=== PATIENT | male | born 1950 | race Caucasian/White ===

== ENCOUNTER 2018-07-16 18:24 | Observation (INO) ==
[2018-07-16] MEDS ORDERED: Sod Chloride 0.9% Inj 1,000 ML IV.SIG ONE ×3 (18:53→21:33)
--- NOTE | 2018-07-16 19:04 | ED ---
HPI General Chief complaint: Weakness Stated complaint: lower back pain/discolored/dizziness Source: patient Mode of arrival: wheelchair Limitations: no limitations History of Present Illness HPI Narrative: Comes in complaining of generalized weakness worsening over the last 2 days. Patient specifically denies any headache or chest pain, denies any nausea vomiting or diarrhea. Does state that the dizziness at times is that room spinning sensation, but that lately he has just not being able to be steady enough to support his own weight. It seems to get worse with sitting or standing or trying to ambulate. MD Complaint: generalized weakness Onset (ago): day(s) (2) Duration: constant Location: generalized Migration: none Relieving factors: none Exacerbating factors: exertion Associated symptoms: denies other symptoms Related Data Home Medications Medication Instructions Recorded Confirmed bupropion HCl [Wellbutrin SR] 150 mg PO DAILY 06/07/18 07/16/18 divalproex [Depakote] 500 mg PO DAILY 06/07/18 07/16/18 levothyroxine [Synthroid] 50 mcg PO DAILY 06/07/18 07/16/18 quetiapine [Seroquel] 400 mg PO HS 06/07/18 07/16/18 lisinopril 10 mg PO DAILY 07/16/18 07/16/18 Previous Rx's Medication Instructions Recorded hydrocodone-acetaminophen [[place]] 1 tab PO Q6H PRN #7 tab 06/07/18 ondansetron [Zofran ODT] 4 mg PO Q8H 5 Days #15 tab 07/16/18 Allergies Allergy/AdvReac Type Severity Reaction Status Date / Time No Known Allergies Allergy Verified 07/16/18 18:33 Review of Systems ROS: all other systems reviewed are negative PMFSH History History Provided By: Patient and Family Member (sister) Medical History Medical History Hypertension (Acute) Mood disorder (Acute) Thyroid disease (Acute) Surgical History Surgical History History of cholecystectomy (Acute) Hx of tonsillectomy (Acute) Social History Social History Substance History: No History of Abuse Second Hand Smoke Exposure: No Smoking Status: Former smoker Tobacco Type: Cigarettes How Often Do You Have a Drink Containing Alcohol: 2 to 4 times a month Exam Narrative Exam Narrative: GENERAL: Elderly male appears older than stated age, is very generally weak, unable to support his own weight on his own, requires assistance even with just moving about the bed SKIN: Warm and dry. HEAD: Atraumatic. Normocephalic. EYES: Pupils equal and round. No scleral icterus. No injection or drainage. ENT: No nasal bleeding or discharge. Dry oral mucosa NECK: Trachea midline. No JVD. CARDIOVASCULAR: Tachycardic rate regular rhythm. no rubs or gallops RESPIRATORY: Tachypnea, accessory muscle use. Clear to auscultation. Breath sounds equal bilaterally. GASTROINTESTINAL: Abdomen soft, non-tender, nondistended. No rebound or guarding MUSCULOSKELETAL: Extremities without clubbing, cyanosis, or edema. No obvious deformities. NEUROLOGICAL: Awake and alert. No obvious cranial nerve deficits. four out of 5 muscle strength in the arms and legs. Normal speech. PSYCHIATRIC: Appropriate mood and affect; insight and judgment normal. Course Initial Documented Vital Signs Temperature 97.8 F 07/16/18 18:26 Pulse Rate 148 H 07/16/18 18:26 Respiratory Rate 20 07/16/18 18:26 Blood Pressure 112/55 L 07/16/18 18:26 Pulse Oximetry 92 L 07/16/18 18:26 Last Documented Vital Signs Temperature 98.4 F 07/17/18 12:00 Pulse Rate 106 H 07/17/18 12:00 Respiratory Rate 31 H 07/17/18 12:00 Blood Pressure 118/73 07/17/18 12:00 Pulse Oximetry 92 L 07/17/18 12:00 Critical Care Time Critical Care Time: Yes Total Critical Care Time: 45 Attestation: Aggregate critical care time was 45 minutes. Time to perform other separately billable procedures was not included in the critical care time. My time did not include minutes spent treating any other patients simultaneously or on activities that did not directly contribute to the patient's treatment. The services I provided to this patient were to treat and/or prevent clinically significant deterioration I provided critical care services requiring my management, as noted below: Chart data review, documentation time, medication orders and management, vital sign assessments/reviewing monitor data, ordering and reviewing lab tests, ordering and interpreting/reviewing x-rays and diagnostic studies, care of the patient and discussion of the patient with the admitting physicians. Medical Decision Making MDM Narrative Medical decision making narrative: No leukocytosis, no anemia, however neutrophilia of 81% present normal platelet count Coagulation profile is within normal limits As of 2002 toxicology and chemistry panels are both pending Accu-Chek 117 Toxicology was negative for any drugs of abuse, negative aspirin, Tylenol, negative alcohol, CT scan is negative for any acute intra-abdominal inflammatory changes Chest x-ray is negative for any consolidation patient is not a safe d/c due to continued debility with high risk fall, living alone without support, and developing agitation and confusion (specifically asked patient and sister about alcoholism and was told he is an occasional drinker and not characterized as an alcoholic.... Medical Screen Exam Complete: Yes Emergency Medical Condition: Yes Differential Diagnosis Differential Diagnosis: Dehydration versus sepsis versus UTI versus pneumonia versus intra-abdominal source versus hemorrhage Medical Records Medical records reviewed: Yes I reviewed the patient's medical records. Lab Data Lab results reviewed: Yes I reviewed the patient's lab results. Result diagrams: 07/17/18 06:35 07/17/18 06:35 Lab Results 07/16/18 07/16/18 07/16/18 Range/Units 19:00 19:00 19:00 CBC w Diff Auto diff final WBC 8.6 (4.0-11.0) th/mm3 RBC 4.52 (4.50-5.90) mil/mm3 Hgb 14.3 (13.0-17.0) gm/dL Hct 42.8 (39.0-51.0) % MCV 94.7 (80.0-100.0) fL MCH 31.5 (27.0-34.0) pg MCHC 33.3 (32.0-36.0) % RDW 12.9 (11.6-17.2) % Plt Count 318 (150-450) th/mm3 MPV 8.9 (7.0-11.0) fL Neut % (Auto) 80.7 H (16.0-70.0) % Lymph % (Auto) 12.0 (9.0-44.0) % [place] % (Auto) 6.3 (0.0-8.0) % Eos % (Auto) 0.3 (0.0-4.0) % Baso % (Auto) 0.7 (0.0-2.0) % Neut # (Auto) 7.0 (1.8-7.7) th/mm3 Lymph # (Auto) 1.0 (1.0-4.8) th/mm3 [place] # (Auto) 0.5 (0.0-0.9) th/mm3 Eos # (Auto) 0.0 (0.0-0.4) th/mm3 Baso # (Auto) 0.1 (0.0-0.2) th/mm3 WBC Differential . Differential Comment . ESR (0-20) mm/hr PT 11.0 (9.8-11.6) sec INR 1.1 Ratio APTT 24.7 (24.3-30.1) sec D-Dimer Quant (PE/DVT) (0.00-0.50) mg/L FEU Sodium (136-145) meq/L Potassium (3.5-5.1) meq/L Chloride (98-107) meq/L Carbon Dioxide (21.0-32.0) meq/L Anion Gap (5-15) meq/L BUN (7-18) mg/dL Creatinine (0.60-1.30) mg/dL Estimated GFR (>89) mL/min POC Glucose (68-110) mg/dl Random Glucose (74-106) mg/dL Lactic Acid (0.4-2.0) mmol/L Calcium (8.5-10.1) mg/dL Magnesium (1.5-2.5) mg/dL Total Bilirubin (0.2-1.0) mg/dL AST (15-37) U/L ALT (12-78) U/L Alkaline Phosphatase (45-117) U/L Ammonia (11-32) mcmol/L Total Creatine Kinase (39-308) U/L CK-MB (CK-2) (0.5-3.6) ng/mL CK-MB (CK-2) % (0.0-4.0) % Troponin I (0.02-0.05) ng/mL Total Protein (6.4-8.2) g/dL Albumin (3.4-5.0) g/dL Lipase (73-393) U/L TSH (0.358-3.740) uIU/mL Urine Color (Yellw/Straw) Urine Clarity (Clear) Urine pH (5.0-8.5) Ur Specific [place] (1.002-1.035) Urine Protein (Neg-Trace) mg/dL Urine Glucose (UA) (Negative) mg/dL Urine Ketones (Negative) mg/dL Urine Occult Blood (Negative) Urine Nitrate (Negative) Urine Bilirubin (Negative) Urine Urobilinogen (Less than 2) mg/dL Ur Leukocyte Esterase (Negative) Urine RBC (0-3) /hpf Urine WBC (0-5) /hpf Ur Squamous Epith Cells (0-5) /hpf Micro UA Comment Ur Microscopic Review Urine Culture Comments Salicylates Less than 1.7 L (2.8-20.0) mg/dL Urine Opiates Screen (Neg) Acetaminophen (10.0-30.0) mcg/mL Ur Barbiturates Screen (Neg) Valproic Acid (50-100) mcg/mL Ur Amphetamines Screen (Neg) U Benzodiazepines Scrn (Neg) Urine Cocaine Screen (Neg) U Cannabinoids Screen (Neg) Serum Alcohol (0-5) mg/dL 07/16/18 07/16/18 07/16/18 Range/Units 19:44 19:50 19:55 CBC w Diff WBC (4.0-11.0) th/mm3 RBC (4.50-5.90) mil/mm3 Hgb (13.0-17.0) gm/dL Hct (39.0-51.0) % MCV (80.0-100.0) fL MCH (27.0-34.0) pg MCHC (32.0-36.0) % RDW (11.6-17.2) % Plt Count (150-450) th/mm3 MPV (7.0-11.0) fL Neut % (Auto) (16.0-70.0) % Lymph % (Auto) (9.0-44.0) % [place] % (Auto) (0.0-8.0) % Eos % (Auto) (0.0-4.0) % Baso % (Auto) (0.0-2.0) % Neut # (Auto) (1.8-7.7) th/mm3 Lymph # (Auto) (1.0-4.8) th/mm3 [place] # (Auto) (0.0-0.9) th/mm3 Eos # (Auto) (0.0-0.4) th/mm3 Baso # (Auto) (0.0-0.2) th/mm3 WBC Differential Differential Comment ESR (0-20) mm/hr PT (9.8-11.6) sec INR Ratio APTT (24.3-30.1) sec D-Dimer Quant (PE/DVT) (0.00-0.50) mg/L FEU Sodium 140 (136-145) meq/L Potassium 4.0 (3.5-5.1) meq/L Chloride 104 (98-107) meq/L Carbon Dioxide 28.2 (21.0-32.0) meq/L Anion Gap 8 (5-15) meq/L BUN 22 H (7-18) mg/dL Creatinine 1.00 (0.60-1.30) mg/dL Estimated GFR 75 L (>89) mL/min POC Glucose 117 H (68-110) mg/dl Random Glucose 113 H (74-106) mg/dL Lactic Acid 1.3 (0.4-2.0) mmol/L Calcium 8.4 L (8.5-10.1) mg/dL Magnesium (1.5-2.5) mg/dL Total Bilirubin 0.5 (0.2-1.0) mg/dL AST 31 (15-37) U/L ALT 33 (12-78) U/L Alkaline Phosphatase 61 (45-117) U/L Ammonia (11-32) mcmol/L Total Creatine Kinase 299 (39-308) U/L CK-MB (CK-2) 2.6 (0.5-3.6) ng/mL CK-MB (CK-2) % (0.0-4.0) % Troponin I Less than 0.02 L (0.02-0.05) ng/mL Total Protein 6.5 (6.4-8.2) g/dL Albumin 3.1 L (3.4-5.0) g/dL Lipase 115 (73-393) U/L TSH 1.410 (0.358-3.740) uIU/mL Urine Color (Yellw/Straw) Urine Clarity (Clear) Urine pH (5.0-8.5) Ur Specific [place] (1.002-1.035) Urine Protein (Neg-Trace) mg/dL Urine Glucose (UA) (Negative) mg/dL Urine Ketones (Negative) mg/dL Urine Occult Blood (Negative) Urine Nitrate (Negative) Urine Bilirubin (Negative) Urine Urobilinogen (Less than 2) mg/dL Ur Leukocyte Esterase (Negative) Urine RBC (0-3) /hpf Urine WBC (0-5) /hpf Ur Squamous Epith Cells (0-5) /hpf Micro UA Comment Ur Microscopic Review Urine Culture Comments Salicylates (2.8-20.0) mg/dL Urine Opiates Screen (Neg) Acetaminophen Less than 2.0 L (10.0-30.0) mcg/mL Ur Barbiturates Screen (Neg) Valproic Acid Less than 3 L (50-100) mcg/mL Ur Amphetamines Screen (Neg) U Benzodiazepines Scrn (Neg) Urine Cocaine Screen (Neg) U Cannabinoids Screen (Neg) Serum Alcohol Less than 3 (0-5) mg/dL 07/16/18 07/16/18 07/16/18 Range/Units 19:55 20:15 20:15 CBC w Diff WBC (4.0-11.0) th/mm3 RBC (4.50-5.90) mil/mm3 Hgb (13.0-17.0) gm/dL Hct (39.0-51.0) % MCV (80.0-100.0) fL MCH (27.0-34.0) pg MCHC (32.0-36.0) % RDW (11.6-17.2) % Plt Count (150-450) th/mm3 MPV (7.0-11.0) fL Neut % (Auto) (16.0-70.0) % Lymph % (Auto) (9.0-44.0) % [place] % (Auto) (0.0-8.0) % Eos % (Auto) (0.0-4.0) % Baso % (Auto) (0.0-2.0) % Neut # (Auto) (1.8-7.7) th/mm3 Lymph # (Auto) (1.0-4.8) th/mm3 [place] # (Auto) (0.0-0.9) th/mm3 Eos # (Auto) (0.0-0.4) th/mm3 Baso # (Auto) (0.0-0.2) th/mm3 WBC Differential Differential Comment ESR (0-20) mm/hr PT (9.8-11.6) sec INR Ratio APTT (24.3-30.1) sec D-Dimer Quant (PE/DVT) (0.00-0.50) mg/L FEU Sodium (136-145) meq/L Potassium (3.5-5.1) meq/L Chloride (98-107) meq/L Carbon Dioxide (21.0-32.0) meq/L Anion Gap (5-15) meq/L BUN (7-18) mg/dL Creatinine (0.60-1.30) mg/dL Estimated GFR (>89) mL/min POC Glucose (68-110) mg/dl Random Glucose (74-106) mg/dL Lactic Acid (0.4-2.0) mmol/L Calcium (8.5-10.1) mg/dL Magnesium (1.5-2.5) mg/dL Total Bilirubin (0.2-1.0) mg/dL AST (15-37) U/L ALT (12-78) U/L Alkaline Phosphatase (45-117) U/L Ammonia Less than 10 L (11-32) mcmol/L Total Creatine Kinase (39-308) U/L CK-MB (CK-2) (0.5-3.6) ng/mL CK-MB (CK-2) % (0.0-4.0) % Troponin I (0.02-0.05) ng/mL Total Protein (6.4-8.2) g/dL Albumin (3.4-5.0) g/dL Lipase (73-393) U/L TSH (0.358-3.740) uIU/mL Urine Color Yellow (Yellw/Straw) Urine Clarity Clear (Clear) Urine pH 7.5 (5.0-8.5) Ur Specific [place] 1.010 (1.002-1.035) Urine Protein Negative (Neg-Trace) mg/dL Urine Glucose (UA) Negative (Negative) mg/dL Urine Ketones Negative (Negative) mg/dL Urine Occult Blood Negative (Negative) Urine Nitrate Negative (Negative) Urine Bilirubin Negative (Negative) Urine Urobilinogen 0.2 (Less than 2) mg/dL Ur Leukocyte Esterase Negative (Negative) Urine RBC 0-3 (0-3) /hpf Urine WBC 0-5 (0-5) /hpf Ur Squamous Epith Cells 0-5 (0-5) /hpf Micro UA Comment Culture not ind Ur Microscopic Review Microscopic reviewed Urine Culture Comments Culture not ind Salicylates (2.8-20.0) mg/dL Urine Opiates Screen Neg (Neg) Acetaminophen (10.0-30.0) mcg/mL Ur Barbiturates Screen Neg (Neg) Valproic Acid (50-100) mcg/mL Ur Amphetamines Screen Neg (Neg) U Benzodiazepines Scrn Neg (Neg) Urine Cocaine Screen Neg (Neg) U Cannabinoids Screen Neg (Neg) Serum Alcohol (0-5) mg/dL 07/17/18 07/17/18 07/17/18 Range/Units 06:35 06:35 06:35 CBC w Diff Auto diff final WBC 7.9 (4.0-11.0) th/mm3 RBC 3.79 L (4.50-5.90) mil/mm3 Hgb 12.3 L D (13.0-17.0) gm/dL Hct 34.6 L (39.0-51.0) % MCV 91.2 D (80.0-100.0) fL MCH 32.5 (27.0-34.0) pg MCHC 35.6 (32.0-36.0) % RDW 13.3 (11.6-17.2) % Plt Count 269 (150-450) th/mm3 MPV 8.7 (7.0-11.0) fL Neut % (Auto) 68.9 (16.0-70.0) % Lymph % (Auto) 17.9 (9.0-44.0) % [place] % (Auto) 11.4 H (0.0-8.0) % Eos % (Auto) 0.9 (0.0-4.0) % Baso % (Auto) 0.9 (0.0-2.0) % Neut # (Auto) 5.4 (1.8-7.7) th/mm3 Lymph # (Auto) 1.4 (1.0-4.8) th/mm3 [place] # (Auto) 0.9 (0.0-0.9) th/mm3 Eos # (Auto) 0.1 (0.0-0.4) th/mm3 Baso # (Auto) 0.1 (0.0-0.2) th/mm3 WBC Differential . Differential Comment . ESR (0-20) mm/hr PT (9.8-11.6) sec INR Ratio APTT (24.3-30.1) sec D-Dimer Quant (PE/DVT) (0.00-0.50) mg/L FEU Sodium 144 (136-145) meq/L Potassium 3.6 (3.5-5.1) meq/L Chloride 110 H (98-107) meq/L Carbon Dioxide 26.0 (21.0-32.0) meq/L Anion Gap 8 (5-15) meq/L BUN 16 (7-18) mg/dL Creatinine 0.77 (0.60-1.30) mg/dL Estimated GFR Greater than 89 (>89) mL/min POC Glucose (68-110) mg/dl Random Glucose 99 (74-106) mg/dL Lactic Acid (0.4-2.0) mmol/L Calcium 8.0 L (8.5-10.1) mg/dL Magnesium 1.5 (1.5-2.5) mg/dL Total Bilirubin (0.2-1.0) mg/dL AST (15-37) U/L ALT (12-78) U/L Alkaline Phosphatase (45-117) U/L Ammonia (11-32) mcmol/L Total Creatine Kinase 319 H (39-308) U/L CK-MB (CK-2) 2.4 (0.5-3.6) ng/mL CK-MB (CK-2) % 0.8 (0.0-4.0) % Troponin I 0.03 (0.02-0.05) ng/mL Total Protein (6.4-8.2) g/dL Albumin (3.4-5.0) g/dL Lipase (73-393) U/L TSH (0.358-3.740) uIU/mL Urine Color (Yellw/Straw) Urine Clarity (Clear) Urine pH (5.0-8.5) Ur Specific [place] (1.002-1.035) Urine Protein (Neg-Trace) mg/dL Urine Glucose (UA) (Negative) mg/dL Urine Ketones (Negative) mg/dL Urine Occult Blood (Negative) Urine Nitrate (Negative) Urine Bilirubin (Negative) Urine Urobilinogen (Less than 2) mg/dL Ur Leukocyte Esterase (Negative) Urine RBC (0-3) /hpf Urine WBC (0-5) /hpf Ur Squamous Epith Cells (0-5) /hpf Micro UA Comment Ur Microscopic Review Urine Culture Comments Salicylates (2.8-20.0) mg/dL Urine Opiates Screen (Neg) Acetaminophen (10.0-30.0) mcg/mL Ur Barbiturates Screen (Neg) Valproic Acid Less than 3 L (50-100) mcg/mL Ur Amphetamines Screen (Neg) U Benzodiazepines Scrn (Neg) Urine Cocaine Screen (Neg) U Cannabinoids Screen (Neg) Serum Alcohol (0-5) mg/dL 07/17/18 07/17/18 Range/Units 06:35 06:35 CBC w Diff WBC (4.0-11.0) th/mm3 RBC (4.50-5.90) mil/mm3 Hgb (13.0-17.0) gm/dL Hct (39.0-51.0) % MCV (80.0-100.0) fL MCH (27.0-34.0) pg MCHC (32.0-36.0) % RDW (11.6-17.2) % Plt Count (150-450) th/mm3 MPV (7.0-11.0) fL Neut % (Auto) (16.0-70.0) % Lymph % (Auto) (9.0-44.0) % [place] % (Auto) (0.0-8.0) % Eos % (Auto) (0.0-4.0) % Baso % (Auto) (0.0-2.0) % Neut # (Auto) (1.8-7.7) th/mm3 Lymph # (Auto) (1.0-4.8) th/mm3 [place] # (Auto) (0.0-0.9) th/mm3 Eos # (Auto) (0.0-0.4) th/mm3 Baso # (Auto) (0.0-0.2) th/mm3 WBC Differential Differential Comment ESR 16 (0-20) mm/hr PT (9.8-11.6) sec INR Ratio APTT (24.3-30.1) sec D-Dimer Quant (PE/DVT) 2.39 H (0.00-0.50) mg/L FEU Sodium (136-145) meq/L Potassium (3.5-5.1) meq/L Chloride (98-107) meq/L Carbon Dioxide (21.0-32.0) meq/L Anion Gap (5-15) meq/L BUN (7-18) mg/dL Creatinine (0.60-1.30) mg/dL Estimated GFR (>89) mL/min POC Glucose (68-110) mg/dl Random Glucose (74-106) mg/dL Lactic Acid (0.4-2.0) mmol/L Calcium (8.5-10.1) mg/dL Magnesium (1.5-2.5) mg/dL Total Bilirubin (0.2-1.0) mg/dL AST (15-37) U/L ALT (12-78) U/L Alkaline Phosphatase (45-117) U/L Ammonia (11-32) mcmol/L Total Creatine Kinase (39-308) U/L CK-MB (CK-2) (0.5-3.6) ng/mL CK-MB (CK-2) % (0.0-4.0) % Troponin I (0.02-0.05) ng/mL Total Protein (6.4-8.2) g/dL Albumin (3.4-5.0) g/dL Lipase (73-393) U/L TSH (0.358-3.740) uIU/mL Urine Color (Yellw/Straw) Urine Clarity (Clear) Urine pH (5.0-8.5) Ur Specific [place] (1.002-1.035) Urine Protein (Neg-Trace) mg/dL Urine Glucose (UA) (Negative) mg/dL Urine Ketones (Negative) mg/dL Urine Occult Blood (Negative) Urine Nitrate (Negative) Urine Bilirubin (Negative) Urine Urobilinogen (Less than 2) mg/dL Ur Leukocyte Esterase (Negative) Urine RBC (0-3) /hpf Urine WBC (0-5) /hpf Ur Squamous Epith Cells (0-5) /hpf Micro UA Comment Ur Microscopic Review Urine Culture Comments Salicylates (2.8-20.0) mg/dL Urine Opiates Screen (Neg) Acetaminophen (10.0-30.0) mcg/mL Ur Barbiturates Screen (Neg) Valproic Acid (50-100) mcg/mL Ur Amphetamines Screen (Neg) U Benzodiazepines Scrn (Neg) Urine Cocaine Screen (Neg) U Cannabinoids Screen (Neg) Serum Alcohol (0-5) mg/dL Imaging Data Radiologist's impression: Chest X-Ray 07/16/18 18:54 CONCLUSION: No focal areas of consolidation. Infiltrate in the left lung base is similar to 2016 and may be chronic. Abdomen/Pelvis CT 07/16/18 18:56 CONCLUSION: 1. Nonobstructing 2 mm calcified stone mid pole left kidney. 2. Biliary gas in the left lobe is probably related to prior cholecystectomy. Abdomen/Pelvis CT 07/17/18 00:00 CONCLUSION: Postcholecystectomy changes and left hepatic pneumobilia. Chest CTA 07/17/18 00:00 CONCLUSION: 1. No CT evidence for pulmonary artery embolism as questioned. 2. Coronary artery calcifications. 3. Bilateral lower lobe groundglass opacities consistent with atelectasis. Platelike atelectasis/scarring in the lingula and right middle lobe. 4. Very nonspecific slightly prominent 13 mm subcarinal lymph node. ECG Data EKG Prior to Arrival: No Attestation: I personally reviewed and interpreted this ECG as follows: Prior ECG tracings: not available for review Interpretation: Sinus tachycardia, 120 bpm, left axis deviation, incomplete right bundle branch block pattern, along with ST depressions on V3 through V6 Discharge Plan Discharge Disposition Patient Disposition: 30 Still Patient Discharge Condition Condition: Fair Discharge Details Diagnosis: Dehydration, Orthostatic dizziness Physicians Team ED Provider: Haseeb Collazo Primary Care Provider: Magali Douglass Attending Provider: Sonido Martinez Other Providers: [employer] Status ED Status: Left Department Discharge Information Discharge Date/Time: 07/17/18 01:39
[2018-07-16 19:40] LABS: Baso # (Auto) 0.1 th/mm3 (0.0-0.2); Baso % (Auto) 0.7 % (0.0-2.0); Eos % (Auto) 0.3 % (0.0-4.0); Hematocrit 42.8 % (39.0-51.0); Hemoglobin 14.3 gm/dL (13.0-17.0); Mean Corpuscular HGB Conc 33.3 % (32.0-36.0); Mean Corpuscular Hemoglobin 31.5 pg (27.0-34.0); Mean Corpuscular Volume 94.7 fL (80.0-100.0); Mean Platelet Volume 8.9 fL (7.0-11.0); Mono # (Auto) 0.5 th/mm3 (0.0-0.9); Mono % (Auto) 6.3 % (0.0-8.0); Neut % (Auto) 80.7 % (16.0-70.0); Platelet Count 318 th/mm3 (150-450); Red Blood Count 4.52 mil/mm3 (4.50-5.90); Red Cell Distribution Width 12.9 % (11.6-17.2); White Blood Count 8.6 th/mm3 (4.0-11.0)
--- NOTE | 2018-07-16 19:45 | CT ---
EXAM DATE: 07/16/2018 7:37 PM EDT AGE/SEX: 68 years / Male INDICATIONS: Lower back pain. Bilateral flank pain. CLINICAL DATA: This is the patient's initial encounter. Patient reports that signs and symptoms have been present for 1 day and indicates a pain score of 6/10. MEDICAL/SURGICAL HISTORY: . Hypertension. Mood disorder. Thyroid disease. . Tonsillectomy. Cho lecystectomy. RADIATION DOSE: 10.04 CTDI (mGy) COMPARISON: No prior exams available for comparison. TECHNIQUE: Multiple contiguous axial images were obtained through the abdomen. Images were obtained using multiple row detector helical technique. Using automated exposure control and adjustment of the mA and/or kV according to patient size, radiation dose was kept as low as reasonably achievable to o btain optimal diagnostic quality images. DICOM format image data is available electronically for rev iew and comparison. FINDINGS: Lower Lungs: The visualized lower lungs are clear. Liver: The liver has a homogeneous density without space-occupying lesion for noncontrast technique. There is some gas in the biliary system of the left lobe, possibly related to prior cholecystectomy.. Spleen: Homogeneous density without enlargement. Pancreas: Unremarkable without mass or calcification. Kidneys: Normal in size and shape. No evidence of mass or hydronephrosis. There is a nonobstructing 2 mm stone in the midpole of the left kidney. No calcifications along the course of either ureter. Du plication of the collecting system on the right side. Adrenal Glands: Unremarkable. Aorta: The aorta and proximal iliac vessels are grossly unremarkable without aneurysmal dilation. Bowel/Mesentery: No dilated loops of small or large bowel. Hyperlucent cecum located medial. The kristian endix is identified superior to the cecum and has a normal size and appearance. Abdominal Wall: Intact. Retroperitoneum: No evidence of adenopathy in the retrocrural, para-aortic, or deep pelvic regions. Bladder: Contours are smooth. No calcifications within the lumen. Reproductive Organs: Metallic localization seeds in the prostate. Inguinal: The inguinal region is unremarkable without evidence of adenopathy. Bony Structures: Degenerative changes in the posterior elements lower lumbar spine. No sclerotic les ions seen. CONCLUSION: 1. Nonobstructing 2 mm calcified stone mid pole left kidney. 2. Biliary gas in the left lobe is probably related to prior cholecystectomy. Electronically signed by: Randal Crum MD 07/16/2018 7:44 PM EDT
--- NOTE | 2018-07-16 19:46 | XR ---
EXAM DATE: 07/16/2018 7:41 PM EDT AGE/SEX: 68 years / Male INDICATIONS: Short of breath and fever. CLINICAL DATA: This is the patient's initial encounter. Patient reports that signs and symptoms have been present for 1 day and indicates a pain score of 0/10. MEDICAL/SURGICAL HISTORY: . Hypertension. . Tonsillectomy. Cholecystectomy COMPARISON: [facility] [place], CHEST SINGLE AP, 10/06/2016. . FINDINGS: Frontal view of the chest demonstrates the lungs to be symmetrically aerated. There is some linear op acities in the left lung base which are similar in appearance to prior examination in September 2016 s uggesting chronic infiltrate or scarring. Both hemidiaphragms well delineated. The right lung is hawk r. The heart is normal in size. CONCLUSION: No focal areas of consolidation. Infiltrate in the left lung base is similar to 2016 and may be chron ic. Electronically signed by: Randal Crum MD 07/16/2018 7:45 PM EDT
[2018-07-16 19:53] LABS: Activated Partial Thrombo Time 24.7 sec (24.3-30.1); INR 1.1 Ratio
[2018-07-16 20:17] LABS: Chloride 104 meq/L (98-107); Sodium 140 meq/L (136-145)
[2018-07-16 20:20] LABS: Calcium 8.4 mg/dL (8.5-10.1)
[2018-07-16 20:21] LABS: Albumin 3.1 g/dL (3.4-5.0); Anion Gap 8 meq/L (5-15); Blood Urea Nitrogen 22 mg/dL (7-18); Carbon Dioxide 28.2 meq/L (21.0-32.0); Glucose,Random 113 mg/dL (74-106); Lipase 115 U/L (73-393)
[2018-07-16 20:23] LABS: Alanine Aminotransferase 33 U/L (12-78)
[2018-07-16 20:24] LABS: Aspartate Aminotransferase 31 U/L (15-37); Glomerular Filtration Rate 75 mL/min (>89)
[2018-07-16 20:25] LABS: Total Protein 6.5 g/dL (6.4-8.2)
[2018-07-16 20:26] LABS: Alkaline Phosphatase 61 U/L (45-117); Creatine Kinase 299 U/L (39-308)
[2018-07-16 20:31] LABS: Bilirubin,Urine Negative (Negative); Clarity,Urine Clear (Clear); Color,Urine Yellow (Yellw/Straw); Glucose,Urine (UA) Negative (Negative); Leukocyte Esterase,Urine Negative (Negative); Nitrite,Urine Negative (Negative); PH,Urine 7.5 (5.0-8.5); Urobilinogen,Urine 0.2 mg/dL (Less than 2)
[2018-07-16 20:39] LABS: Amphetamine Screen,Urine Neg (Neg); Barbiturate Screen,Urine Neg (Neg); Cannabinoid Screen,Urine Neg (Neg)
[2018-07-16 20:40] LABS: Cocaine Screen,Urine Neg (Neg)
[2018-07-16 20:43] LABS: RBC,Urine 0-3 /hpf (0-3); Squamous Epithelial Cell,Urine 0-5 /hpf (0-5); WBC,Urine 0-5 /hpf (0-5)
[2018-07-16 20:44] LABS: Creatine Kinase MB 2.6 ng/mL (0.5-3.6)
[2018-07-16 20:46] LABS: Opiate Screen,Urine Neg (Neg)
[2018-07-16] MEDS ORDERED: Acetaminophen 325 MG Tablet PO PRN (23:44)
[2018-07-16] MEDS ORDERED: Bisacodyl 10 MG Supp RECTAL PRN (23:44)
[2018-07-16] MEDS ORDERED: Sod Chloride 0.9% Inj 1,000 ML IV.CONT SCH (23:45)
[2018-07-17 07:08] LABS: Chloride 110 meq/L (98-107); Potassium 3.6 meq/L (3.5-5.1); Sodium 144 meq/L (136-145)
[2018-07-17 07:11] LABS: Anion Gap 8 meq/L (5-15); Blood Urea Nitrogen 16 mg/dL (7-18); Glucose,Random 99 mg/dL (74-106)
[2018-07-17 07:14] LABS: Glomerular Filtration Rate Greater Than 89 mL/min (>89)
[2018-07-17 07:22] LABS: Baso # (Auto) 0.1 th/mm3 (0.0-0.2); Baso % (Auto) 0.9 % (0.0-2.0); Eos # (Auto) 0.1 th/mm3 (0.0-0.4); Eos % (Auto) 0.9 % (0.0-4.0); Hematocrit 34.6 % (39.0-51.0); Hemoglobin 12.3 gm/dL (13.0-17.0); Lymph # (Auto) 1.4 th/mm3 (1.0-4.8); Lymph % (Auto) 17.9 % (9.0-44.0); Mean Corpuscular HGB Conc 35.6 % (32.0-36.0); Mean Corpuscular Hemoglobin 32.5 pg (27.0-34.0); Mean Corpuscular Volume 91.2 fL (80.0-100.0); Mean Platelet Volume 8.7 fL (7.0-11.0); Mono # (Auto) 0.9 th/mm3 (0.0-0.9); Mono % (Auto) 11.4 % (0.0-8.0); Neut # (Auto) 5.4 th/mm3 (1.8-7.7); Neut % (Auto) 68.9 % (16.0-70.0); Platelet Count 269 th/mm3 (150-450); Red Blood Count 3.79 mil/mm3 (4.50-5.90); Red Cell Distribution Width 13.3 % (11.6-17.2); White Blood Count 7.9 th/mm3 (4.0-11.0)
[2018-07-17] MEDS ORDERED: Potassium Phosphate Inj 30 MMOL in Sodium Chlor 0.9% Inj 250 ML IV.SIG PRN (08:59)
[2018-07-17] MEDS ORDERED: Sodium Phosphate Inj 30 MMOL in Sodium Chlor 0.9% Inj 250 ML IV.SIG PRN (08:59)
[2018-07-17] MEDS ORDERED: Magnesium Oxide 400 MG Tablet PO PRN (08:59)
[2018-07-17] MEDS ORDERED: Potassium Chlor 20 mEq Premix 20 MEQ/100 ML PIGGYBACK IV.SIG PRN ×2 (08:59)
[2018-07-17] MEDS ORDERED: Potassium Chlor 40 mEq Premix 40 MEQ/100 ML PIGGYBACK IV.SIG PRN ×2 (08:59)
[2018-07-17] MEDS ORDERED: Potassium Phosphate 500 MG Soluble Tablet PO PRN ×2 (08:59)
[2018-07-17] MEDS ORDERED: Potassium Chloride 25 MEQ Effervescent Tablet PO PRN (08:59)
[2018-07-17] MEDS ORDERED: Magnesium Sulfate Inj 2 GM in Sodium Chlor 0.9% Inj 96 ML IV.SIG PRN (08:59)
[2018-07-17] MEDS ORDERED: Magnesium Sulfate Inj 4 GM in Sodium Chlor 0.9% Inj 92 ML IV.SIG PRN (08:59)
[2018-07-17] MEDS: Heparin - SQ 10,000 UNITS/ML Vial SQ SCH ×2 (09:03→20:23)
[2018-07-17] MEDS: Senna/Docusate Sodium 8.6/50 MG Tablet PO SCH ×2 (09:03→20:23)
[2018-07-17] MEDS: buPROPion 150 MG 12 HR Tablet PO SCH (09:43)
[2018-07-17] MEDS: Levothyroxine 50 MCG Tablet PO SCH (09:44)
--- NOTE | 2018-07-17 09:56 | P.HP ---
History of Present Illness Primary Care Physician: Magali Douglass MD [facility] - History History Provided By: Patient - Medical History Medical History: Medical History (Last Reviewed 07/16/18 @ 19:46 by Evette Cheng RN) Hypertension Mood disorder Thyroid disease - Surgical History Surgical History: Surgical History (Last Reviewed 07/16/18 @ 19:46 by Evette Cheng RN) History of cholecystectomy Hx of tonsillectomy - Tobacco History Second Hand Smoke Exposure: No Tobacco Use In Past 30 Days: No Smoking Status: Former smoker Tobacco Type: Cigarettes - Alcohol History How Often Do You Have a Drink Containing Alcohol: 2 to 4 times a month - Substance Use History Substance History: No History of Abuse - Substance Use Type LSD, Mushrooms Last Used: 1996 Marijuana Status: Sustained Remission Route Used: Inhalation Last Used: 1996 - Immunization History Tetanus Immunization: <5 Years Hx Influenza Vaccine This Season: Yes Medications and Allergies Active Medications: Active Medications Acetaminophen (Tylenol) 650 mg PO Q4H PRN PRN Reason: Temp > 100.4 Hydrocodone Bitart/Acetaminophen ([place] 5/325) 1 tab PO Q6H PRN PRN Reason: pain (scale score 7-10) Last Admin: 07/17/18 09:43 Dose: 1 tab Al Hydroxide/Mg Hydroxide (Milk Of Magnemmy Liq) 30 ml PO Q12H PRN PRN Reason: Mild Constipation Bisacodyl (Dulcolax Supp) 10 mg RECTAL DAILY PRN PRN Reason: SEVERE CONSITIPATION Last Admin: 07/17/18 09:43 Dose: 10 mg Bupropion HCl (Wellbutrin Sr) 150 mg PO DAILY [facility] Last Admin: 07/17/18 09:43 Dose: 150 mg Divalproex Sodium (Depakote Dr) 500 mg PO DAILY [facility] Heparin Sodium (Porcine) (Heparin Inj) 5,000 units SQ Q12HR [facility] Last Admin: 07/17/18 09:03 Dose: 5,000 units Magnesium Sulfate Inj 4 gm/ (Sodium Chloride) 100 mls @ 50 mls/hr IV.SIG UNSCH PRN PRN Reason: For Magnesium 0.9 - 1.1 mg/dL Magnesium Sulfate Inj 2 gm/ (Sodium Chloride) 100 mls @ 50 mls/hr IV.SIG UNSCH PRN PRN Reason: For Magnesium 1.2 - 1.6 mg/dL Potassium Chloride (Kcl 40 Meq Premix Inj) 40 meq in 100 mls @ 25 mls/hr IV.SIG Q2H PRN PRN Reason: For Potassium 2.8 - 3.2 mEq/L Potassium Chloride (Kcl 20 Meq Premix Inj) 20 meq in 100 mls @ 50 mls/hr IV.SIG Q2H PRN PRN Reason: For Potassium 3.3 - 3.5 mEq/L Potassium Chloride (Kcl 40 Meq Premix Inj) 40 meq in 100 mls @ 25 mls/hr IV.SIG UNSCH PRN PRN Reason: For Potassium 3.3 - 3.5 mEq/L Potassium Chloride (Kcl 20 Meq Premix Inj) 20 meq in 100 mls @ 50 mls/hr IV.SIG Q2H PRN PRN Reason: For Potassium 2.8 - 3.2 mEq/L Potassium Phosphate 30 mmol/ (Sodium Chloride) 260 mls @ 42 mls/hr IV.SIG UNSCH PRN PRN Reason: SEE LABEL COMMENTS Sodium Phosphate 30 mmol/ (Sodium Chloride) 260 mls @ 42 mls/hr IV.SIG UNSCH PRN PRN Reason: For Phosphorus < 2.5 mg/dL Lactulose (Lactulose Liq) 30 ml PO DAILY PRN PRN Reason: SEVERE CONSITIPATION Levothyroxine Sodium (Synthroid) 50 mcg PO DAILY@0600 [facility] Last Admin: 07/17/18 09:44 Dose: 50 mcg Magnesium Oxide (Mag-Ox) 800 mg PO UNSCH PRN PRN Reason: For Magnesium 1.2 - 1.6 mg/dL Ondansetron HCl (Zofran Inj) 4 mg IV.PUSH Q6H PRN PRN Reason: NAUSEA OR VOMITING Last Admin: 07/17/18 09:03 Dose: 4 mg Potassium Bicarb/Potassium Chloride (K-Lyte Cl Eff) 50 meq PO UNSCH PRN PRN Reason: For Potassium 3.3 - 3.5 mEq/L Potassium Phosphate (K-Phos Original) 2,000 mg PO Q4H PRN PRN Reason: Phosphorus Less Than 2.5 mg/dL Potassium Phosphate (K-Phos Original) 2,000 mg PO UNSCH PRN PRN Reason: SEE LABEL COMMENTS Quetiapine Fumarate (Seroquel) 400 mg PO [facility] Senna/Docusate Sodium (Betsy-Colace) 1 tab PO BID [facility] Last Admin: 07/17/18 09:03 Dose: 1 tab Sennosides (Senokot) 17.2 mg PO Q12H PRN PRN Reason: Moderate Constipation Last Admin: 07/17/18 09:43 Dose: 17.2 mg Allergies Allergy/AdvReac Type Severity Reaction Status Date / Time No Known Allergies Allergy Verified 07/16/18 18:33 Home Medications Medication Instructions Recorded Confirmed Type bupropion HCl [Wellbutrin SR] 150 mg PO DAILY 06/07/18 07/16/18 History divalproex [Depakote] 500 mg PO DAILY 06/07/18 07/16/18 History levothyroxine [Synthroid] 50 mcg PO DAILY 06/07/18 07/16/18 History quetiapine [Seroquel] 400 mg PO HS 06/07/18 07/16/18 History lisinopril 10 mg PO DAILY 07/16/18 07/16/18 History Exam Vital signs: Vital Signs 07/16/18 18:26 07/16/18 19:00 07/16/18 19:15 Temperature 97.8 F Pulse Rate 148 H 127 H 120 H Respiratory Rate 20 20 Blood Pressure 112/55 L 103/73 Pulse Oximetry 92 L 95 07/16/18 20:18 07/17/18 00:49 07/17/18 01:16 Temperature Pulse Rate 116 H 124 H 109 H Respiratory Rate 20 20 20 Blood Pressure 139/94 H 168/89 H 172/98 H Pulse Oximetry 96 96 95 07/17/18 01:54 07/17/18 01:55 07/17/18 02:00 Temperature 98.4 F Pulse Rate 111 H 103 H Respiratory Rate 27 H Blood Pressure 174/106 H Pulse Oximetry 91 L 91 L 07/17/18 04:00 07/17/18 05:27 07/17/18 07:00 Temperature 98.2 F 98.4 F Pulse Rate 102 H 92 H Respiratory Rate 28 H 30 H Blood Pressure 182/97 H 166/103 H 170/88 H Pulse Oximetry 93 L 95 07/17/18 08:00 Temperature Pulse Rate 94 H Respiratory Rate 40 H Blood Pressure 155/101 H Pulse Oximetry 95 Intake & Output 07/16/18 07/17/18 07/17/18 18:59 06:59 18:59 Intake Total 3060 / 3060 Balance 3060 / 3060 Weight 80 kg 80.6 kg Intake: IV 3000 / 3000 NS Inj 1,000 ML @ Wide Open IV. 3000 / 3000 SIG BOLUS ONE Rx#:[id number] Oral 60 / 60 Other: # Incontinent Voids 1 Weight On Admission 80.6 kg Results - Labs CBC & Chem 7: 07/17/18 06:35 07/17/18 06:35 Labs: Laboratory Results - last 24 hr 07/16/18 07/16/18 07/16/18 19:00 19:00 19:00 CBC w Diff Auto diff final WBC 8.6 RBC 4.52 Hgb 14.3 Hct 42.8 MCV 94.7 MCH 31.5 MCHC 33.3 RDW 12.9 Plt Count 318 MPV 8.9 Neut % (Auto) 80.7 H Lymph % (Auto) 12.0 [place] % (Auto) 6.3 Eos % (Auto) 0.3 Baso % (Auto) 0.7 Neut # (Auto) 7.0 Lymph # (Auto) 1.0 [place] # (Auto) 0.5 Eos # (Auto) 0.0 Baso # (Auto) 0.1 WBC Differential . Differential Comment . PT 11.0 INR 1.1 APTT 24.7 Sodium Potassium Chloride Carbon Dioxide Anion Gap BUN Creatinine Estimated GFR POC Glucose Random Glucose Lactic Acid Calcium Total Bilirubin AST ALT Alkaline Phosphatase Ammonia Total Creatine Kinase CK-MB (CK-2) Troponin I Total Protein Albumin Lipase TSH Urine Color Urine Clarity Urine pH Ur Specific [place] Urine Protein Urine Glucose (UA) Urine Ketones Urine Occult Blood Urine Nitrate Urine Bilirubin Urine Urobilinogen Ur Leukocyte Esterase Urine RBC Urine WBC Ur Squamous Epith Cells Micro UA Comment Ur Microscopic Review Urine Culture Comments Salicylates Less than 1.7 L Urine Opiates Screen Acetaminophen Ur Barbiturates Screen Valproic Acid Ur Amphetamines Screen U Benzodiazepines Scrn Urine Cocaine Screen U Cannabinoids Screen Serum Alcohol 07/16/18 07/16/18 07/16/18 19:44 19:50 19:55 CBC w Diff WBC RBC Hgb Hct MCV MCH MCHC RDW Plt Count MPV Neut % (Auto) Lymph % (Auto) [place] % (Auto) Eos % (Auto) Baso % (Auto) Neut # (Auto) Lymph # (Auto) [place] # (Auto) Eos # (Auto) Baso # (Auto) WBC Differential Differential Comment PT INR APTT Sodium 140 Potassium 4.0 Chloride 104 Carbon Dioxide 28.2 Anion Gap 8 BUN 22 H Creatinine 1.00 Estimated GFR 75 L POC Glucose 117 H Random Glucose 113 H Lactic Acid 1.3 Calcium 8.4 L Total Bilirubin 0.5 AST 31 ALT 33 Alkaline Phosphatase 61 Ammonia Total Creatine Kinase 299 CK-MB (CK-2) 2.6 Troponin I Less than 0.02 L Total Protein 6.5 Albumin 3.1 L Lipase 115 TSH 1.410 Urine Color Urine Clarity Urine pH Ur Specific [place] Urine Protein Urine Glucose (UA) Urine Ketones Urine Occult Blood Urine Nitrate Urine Bilirubin Urine Urobilinogen Ur Leukocyte Esterase Urine RBC Urine WBC Ur Squamous Epith Cells Micro UA Comment Ur Microscopic Review Urine Culture Comments Salicylates Urine Opiates Screen Acetaminophen Less than 2.0 L Ur Barbiturates Screen Valproic Acid Less than 3 L Ur Amphetamines Screen U Benzodiazepines Scrn Urine Cocaine Screen U Cannabinoids Screen Serum Alcohol Less than 3 07/16/18 07/16/18 07/16/18 19:55 20:15 20:15 CBC w Diff WBC RBC Hgb Hct MCV MCH MCHC RDW Plt Count MPV Neut % (Auto) Lymph % (Auto) [place] % (Auto) Eos % (Auto) Baso % (Auto) Neut # (Auto) Lymph # (Auto) [place] # (Auto) Eos # (Auto) Baso # (Auto) WBC Differential Differential Comment PT INR APTT Sodium Potassium Chloride Carbon Dioxide Anion Gap BUN Creatinine Estimated GFR POC Glucose Random Glucose Lactic Acid Calcium Total Bilirubin AST ALT Alkaline Phosphatase Ammonia Less than 10 L Total Creatine Kinase CK-MB (CK-2) Troponin I Total Protein Albumin Lipase TSH Urine Color Yellow Urine Clarity Clear Urine pH 7.5 Ur Specific [place] 1.010 Urine Protein Negative Urine Glucose (UA) Negative Urine Ketones Negative Urine Occult Blood Negative Urine Nitrate Negative Urine Bilirubin Negative Urine Urobilinogen 0.2 Ur Leukocyte Esterase Negative Urine RBC 0-3 Urine WBC 0-5 Ur Squamous Epith Cells 0-5 Micro UA Comment Culture not ind Ur Microscopic Review Microscopic reviewed Urine Culture Comments Culture not ind Salicylates Urine Opiates Screen Neg Acetaminophen Ur Barbiturates Screen Neg Valproic Acid Ur Amphetamines Screen Neg U Benzodiazepines Scrn Neg Urine Cocaine Screen Neg U Cannabinoids Screen Neg Serum Alcohol 08/24/18 08/24/18 06:35 06:35 CBC w Diff Auto diff final WBC 7.9 RBC 3.79 L Hgb 12.3 L D Hct 34.6 L MCV 91.2 D MCH 32.5 MCHC 35.6 RDW 13.3 Plt Count 269 MPV 8.7 Neut % (Auto) 68.9 Lymph % (Auto) 17.9 [place] % (Auto) 11.4 H Eos % (Auto) 0.9 Baso % (Auto) 0.9 Neut # (Auto) 5.4 Lymph # (Auto) 1.4 [place] # (Auto) 0.9 Eos # (Auto) 0.1 Baso # (Auto) 0.1 WBC Differential . Differential Comment . PT INR APTT Sodium 144 Potassium 3.6 Chloride 110 H Carbon Dioxide 26.0 Anion Gap 8 BUN 16 Creatinine 0.77 Estimated GFR Greater than 89 POC Glucose Random Glucose 99 Lactic Acid Calcium 8.0 L Total Bilirubin AST ALT Alkaline Phosphatase Ammonia Total Creatine Kinase CK-MB (CK-2) Troponin I Total Protein Albumin Lipase TSH Urine Color Urine Clarity Urine pH Ur Specific [place] Urine Protein Urine Glucose (UA) Urine Ketones Urine Occult Blood Urine Nitrate Urine Bilirubin Urine Urobilinogen Ur Leukocyte Esterase Urine RBC Urine WBC Ur Squamous Epith Cells Micro UA Comment Ur Microscopic Review Urine Culture Comments Salicylates Urine Opiates Screen Acetaminophen Ur Barbiturates Screen Valproic Acid Ur Amphetamines Screen U Benzodiazepines Scrn Urine Cocaine Screen U Cannabinoids Screen Serum Alcohol - Imaging Impressions Chest X-Ray 07/16/18 18:54 CONCLUSION: No focal areas of consolidation. Infiltrate in the left lung base is similar to 2016 and may be chronic. Abdomen/Pelvis CT 07/16/18 18:56 CONCLUSION: 1. Nonobstructing 2 mm calcified stone mid pole left kidney. 2. Biliary gas in the left lobe is probably related to prior cholecystectomy. Caprini VTE Risk Assessment Caprini Risk Assessment Model: Point Value = 1 Point Value = 2 Point Value = 3 Point Value = 5 Age 41-60 Minor surgery BMI > 25 kg/m2 Swollen legs Varicose veins or History of unexplained or recurrent spontaneous Oral contraceptives or hormone replacement Sepsis (< 1 month) Serious lung disease, including pneumonia (< 1 month) Abnormal pulmonary function Acute myocardial infarction Congestive heart failure (< 1 month) History of inflammatory bowel disease Medical patient at bed rest Age 61-74 Arthroscopic surgery Major open surgery (> 45 min) Laparoscopic surgery (> 45 min) Malignancy Confined to bed (> 72 hours) Immobilizing plaster cast Central venous access Age >= 75 History of VTE Family history of VTE Factor V Leiden Prothrombin [id number] Lupus anticoagulant Anticardiolipin antibodies Elevated serum homocysteine Heparin-induced thrombocytopenia Other congenital or acquired thrombophilia Stroke (< 1 month) Elective arthroplasty Hip, pelvis, or leg fracture Acute spinal cord injury (< 1 month) Prophylaxis Regimen: Total Risk Factor Score Risk Level Prophylaxis Regimen 0-1 Low Early ambulation 2 Moderate Order ONE of the following: *Sequential Compression Device (SCD) *Heparin 5000 units SQ BID 3-4 Higher Order ONE of the following medications: *Heparin 5000 units SQ TID *Enoxaparin/Lovenox 40 mg SQ daily (WT < 150 kg, CrCl > 30 mL/min) *Enoxaparin/Lovenox 30 mg SQ daily (WT < 150 kg, CrCl > 10-29 mL/min) *Enoxaparin/Lovenox 30 mg SQ BID (WT < 150 kg, CrCl > 30 mL/min) AND/OR *Sequential Compression Device (SCD) 5 or more Highest Order ONE of the following medications: *Heparin 5000 units SQ TID (Preferred with Epidurals) *Enoxaparin/Lovenox 40 mg SQ daily (WT < 150 kg, CrCl > 30 mL/min) *Enoxaparin/Lovenox 30 mg SQ daily (WT < 150 kg, CrCl > 10-29 mL/min) *Enoxaparin/Lovenox 30 mg SQ BID (WT < 150 kg, CrCl > 30 mL/min) AND *Sequential Compression Device (SCD)
--- NOTE | 2018-07-17 10:02 | P.HP ---
History of Present Illness Primary Care Physician: Magali Douglass MD Chief Complaint: Generalized weakness History of Present Illness: This is a 68-year-old male with a history of bipolar disorder, hypothyroidism and hypertension. Family history of heart disease. He presents to the emergency department because of dehydration. States he has been feeling weak for about a week worsening over the last 2 days associated with dizziness especially when he is standing. No falls. Denies anorexia, nausea, vomiting, abdominal pain, UTI and diarrhea. He was not orthostatic in the emergency department and has been hydrated overnight. This morning he complains of nausea. He also reports of chronic intermittent sharp severe retrosternal pain as well as mid back pain lasting from 5-30 minutes associated with dizziness. He also reports of heavy breathing but denies radiation of pain, palpitations and diaphoresis. No precipitating or alleviating factors. It is not related to meals. Denies history of CAD with negative stress test in 2006. No leg pain or swelling. On exam he is also tender over his sternum and entire spine. He also reports of visual hallucination seeing people denies being threatened. States he is not taking any new medications. UDS is negative. All other systems reviewed negative Review of Systems All other systems reviewed negative except as stated in HPI PMFSH - History History Provided By: Patient - Medical History Medical History: Medical History (Last Reviewed 07/16/18 @ 19:46 by Evette Cheng RN) Hypertension Mood disorder Thyroid disease - Surgical History Surgical History: Surgical History (Last Reviewed 07/16/18 @ 19:46 by Evette Cheng RN) History of cholecystectomy Hx of tonsillectomy - Tobacco History Second Hand Smoke Exposure: No Tobacco Use In Past 30 Days: No Smoking Status: Former smoker Tobacco Type: Cigarettes - Alcohol History How Often Do You Have a Drink Containing Alcohol: 2 to 4 times a month - Substance Use History Substance History: No History of Abuse - Substance Use Type LSD, Mushrooms Last Used: 1996 Marijuana Status: Sustained Remission Route Used: Inhalation Last Used: 1996 - Immunization History Tetanus Immunization: <5 Years Hx Influenza Vaccine This Season: Yes Medications and Allergies Active Medications: Active Medications Acetaminophen (Tylenol) 650 mg PO Q4H PRN PRN Reason: Temp > 100.4 Hydrocodone Bitart/Acetaminophen (Martelle 5/325) 1 tab PO Q6H PRN PRN Reason: pain (scale score 7-10) Last Admin: 07/17/18 09:43 Dose: 1 tab Al Hydroxide/Mg Hydroxide (Milk Of Magnemmy Liq) 30 ml PO Q12H PRN PRN Reason: Mild Constipation Bisacodyl (Dulcolax Supp) 10 mg RECTAL DAILY PRN PRN Reason: SEVERE CONSITIPATION Last Admin: 07/17/18 09:43 Dose: 10 mg Bupropion HCl (Wellbutrin Sr) 150 mg PO DAILY [facility] Last Admin: 07/17/18 09:43 Dose: 150 mg Divalproex Sodium (Depakote Dr) 500 mg PO DAILY [facility] Heparin Sodium (Porcine) (Heparin Inj) 5,000 units SQ Q12HR [facility] Last Admin: 07/17/18 09:03 Dose: 5,000 units Magnesium Sulfate Inj 4 gm/ (Sodium Chloride) 100 mls @ 50 mls/hr IV.SIG UNSCH PRN PRN Reason: For Magnesium 0.9 - 1.1 mg/dL Magnesium Sulfate Inj 2 gm/ (Sodium Chloride) 100 mls @ 50 mls/hr IV.SIG UNSCH PRN PRN Reason: For Magnesium 1.2 - 1.6 mg/dL Potassium Chloride (Kcl 40 Meq Premix Inj) 40 meq in 100 mls @ 25 mls/hr IV.SIG Q2H PRN PRN Reason: For Potassium 2.8 - 3.2 mEq/L Potassium Chloride (Kcl 20 Meq Premix Inj) 20 meq in 100 mls @ 50 mls/hr IV.SIG Q2H PRN PRN Reason: For Potassium 3.3 - 3.5 mEq/L Potassium Chloride (Kcl 40 Meq Premix Inj) 40 meq in 100 mls @ 25 mls/hr IV.SIG UNSCH PRN PRN Reason: For Potassium 3.3 - 3.5 mEq/L Potassium Chloride (Kcl 20 Meq Premix Inj) 20 meq in 100 mls @ 50 mls/hr IV.SIG Q2H PRN PRN Reason: For Potassium 2.8 - 3.2 mEq/L Potassium Phosphate 30 mmol/ (Sodium Chloride) 260 mls @ 42 mls/hr IV.SIG UNSCH PRN PRN Reason: SEE LABEL COMMENTS Sodium Phosphate 30 mmol/ (Sodium Chloride) 260 mls @ 42 mls/hr IV.SIG UNSCH PRN PRN Reason: For Phosphorus < 2.5 mg/dL Lactulose (Lactulose Liq) 30 ml PO DAILY PRN PRN Reason: SEVERE CONSITIPATION Levothyroxine Sodium (Synthroid) 50 mcg PO DAILY@0600 [facility] Last Admin: 07/17/18 09:44 Dose: 50 mcg Magnesium Oxide (Mag-Ox) 800 mg PO UNSCH PRN PRN Reason: For Magnesium 1.2 - 1.6 mg/dL Ondansetron HCl (Zofran Inj) 4 mg IV.PUSH Q6H PRN PRN Reason: NAUSEA OR VOMITING Last Admin: 07/17/18 09:03 Dose: 4 mg Potassium Bicarb/Potassium Chloride (K-Lyte Cl Eff) 50 meq PO UNSCH PRN PRN Reason: For Potassium 3.3 - 3.5 mEq/L Potassium Phosphate (K-Phos Original) 2,000 mg PO Q4H PRN PRN Reason: Phosphorus Less Than 2.5 mg/dL Potassium Phosphate (K-Phos Original) 2,000 mg PO UNSCH PRN PRN Reason: SEE LABEL COMMENTS Quetiapine Fumarate (Seroquel) 400 mg PO [facility] Senna/Docusate Sodium (Betsy-Colace) 1 tab PO BID [facility] Last Admin: 07/17/18 09:03 Dose: 1 tab Sennosides (Senokot) 17.2 mg PO Q12H PRN PRN Reason: Moderate Constipation Last Admin: 07/17/18 09:43 Dose: 17.2 mg Allergies Allergy/AdvReac Type Severity Reaction Status Date / Time No Known Allergies Allergy Verified 07/16/18 18:33 Home Medications Medication Instructions Recorded Confirmed Type bupropion HCl [Wellbutrin SR] 150 mg PO DAILY 06/07/18 07/16/18 History divalproex [Depakote] 500 mg PO DAILY 06/07/18 07/16/18 History levothyroxine [Synthroid] 50 mcg PO DAILY 06/07/18 07/16/18 History quetiapine [Seroquel] 400 mg PO HS 06/07/18 07/16/18 History lisinopril 10 mg PO DAILY 07/16/18 07/16/18 History Exam Vital signs: Vital Signs 07/16/18 18:26 07/16/18 19:00 07/16/18 19:15 Temperature 97.8 F Pulse Rate 148 H 127 H 120 H Respiratory Rate 20 20 Blood Pressure 112/55 L 103/73 Pulse Oximetry 92 L 95 07/16/18 20:18 07/17/18 00:49 07/17/18 01:16 Temperature Pulse Rate 116 H 124 H 109 H Respiratory Rate 20 20 20 Blood Pressure 139/94 H 168/89 H 172/98 H Pulse Oximetry 96 96 95 07/17/18 01:54 07/17/18 01:55 07/17/18 02:00 Temperature 98.4 F Pulse Rate 111 H 103 H Respiratory Rate 27 H Blood Pressure 174/106 H Pulse Oximetry 91 L 91 L 07/17/18 04:00 07/17/18 05:27 07/17/18 07:00 Temperature 98.2 F 98.4 F Pulse Rate 102 H 92 H Respiratory Rate 28 H 30 H Blood Pressure 182/97 H 166/103 H 170/88 H Pulse Oximetry 93 L 95 07/17/18 08:00 Temperature Pulse Rate 94 H Respiratory Rate 40 H Blood Pressure 155/101 H Pulse Oximetry 95 Intake & Output 07/16/18 07/17/18 07/17/18 18:59 06:59 18:59 Intake Total 3060 / 3060 Balance 3060 / 3060 Weight 80 kg 80.6 kg Intake: IV 3000 / 3000 NS Inj 1,000 ML @ Wide Open IV. 3000 / 3000 SIG BOLUS ONE Rx#:[id number] Oral 60 / 60 Other: # Incontinent Voids 1 Weight On Admission 80.6 kg Narrative: GENERAL: Well-developed, well-nourished in no distress SKIN: Warm and dry. HEAD: Atraumatic. Normocephalic. EYES: Pupils equal and round. No scleral icterus. No injection or drainage. ENT: No nasal bleeding or discharge. Mucous membranes pink and moist. NECK: Trachea midline. No JVD. CARDIOVASCULAR: Regular rate and rhythm. RESPIRATORY: No accessory muscle use. Clear to auscultation. Breath sounds equal bilaterally. Tachypneic with tender sternum GASTROINTESTINAL: Abdomen soft, non-tender, nondistended. MUSCULOSKELETAL: Extremities without clubbing, cyanosis, or edema. No obvious deformities. Tender entire spine NEUROLOGICAL: Awake and alert. No obvious cranial nerve deficits. Motor grossly within normal limits. Five out of 5 muscle strength in the arms and legs. Normal speech. Admits to visual PSYCHIATRIC: Appropriate mood and affect; insight and judgment normal. Results - Labs CBC & Chem 7: 07/17/18 06:35 07/17/18 06:35 Labs: Laboratory Results - last 24 hr 07/16/18 07/16/18 07/16/18 19:00 19:00 19:00 CBC w Diff Auto diff final WBC 8.6 RBC 4.52 Hgb 14.3 Hct 42.8 MCV 94.7 MCH 31.5 MCHC 33.3 RDW 12.9 Plt Count 318 MPV 8.9 Neut % (Auto) 80.7 H Lymph % (Auto) 12.0 [place] % (Auto) 6.3 Eos % (Auto) 0.3 Baso % (Auto) 0.7 Neut # (Auto) 7.0 Lymph # (Auto) 1.0 [place] # (Auto) 0.5 Eos # (Auto) 0.0 Baso # (Auto) 0.1 WBC Differential . Differential Comment . PT 11.0 INR 1.1 APTT 24.7 Sodium Potassium Chloride Carbon Dioxide Anion Gap BUN Creatinine Estimated GFR POC Glucose Random Glucose Lactic Acid Calcium Total Bilirubin AST ALT Alkaline Phosphatase Ammonia Total Creatine Kinase CK-MB (CK-2) Troponin I Total Protein Albumin Lipase TSH Urine Color Urine Clarity Urine pH Ur Specific [place] Urine Protein Urine Glucose (UA) Urine Ketones Urine Occult Blood Urine Nitrate Urine Bilirubin Urine Urobilinogen Ur Leukocyte Esterase Urine RBC Urine WBC Ur Squamous Epith Cells Micro UA Comment Ur Microscopic Review Urine Culture Comments Salicylates Less than 1.7 L Urine Opiates Screen Acetaminophen Ur Barbiturates Screen Valproic Acid Ur Amphetamines Screen U Benzodiazepines Scrn Urine Cocaine Screen U Cannabinoids Screen Serum Alcohol 07/16/18 07/16/18 07/16/18 19:44 19:50 19:55 CBC w Diff WBC RBC Hgb Hct MCV MCH MCHC RDW Plt Count MPV Neut % (Auto) Lymph % (Auto) [place] % (Auto) Eos % (Auto) Baso % (Auto) Neut # (Auto) Lymph # (Auto) [place] # (Auto) Eos # (Auto) Baso # (Auto) WBC Differential Differential Comment PT INR APTT Sodium 140 Potassium 4.0 Chloride 104 Carbon Dioxide 28.2 Anion Gap 8 BUN 22 H Creatinine 1.00 Estimated GFR 75 L POC Glucose 117 H Random Glucose 113 H Lactic Acid 1.3 Calcium 8.4 L Total Bilirubin 0.5 AST 31 ALT 33 Alkaline Phosphatase 61 Ammonia Total Creatine Kinase 299 CK-MB (CK-2) 2.6 Troponin I Less than 0.02 L Total Protein 6.5 Albumin 3.1 L Lipase 115 TSH 1.410 Urine Color Urine Clarity Urine pH Ur Specific [place] Urine Protein Urine Glucose (UA) Urine Ketones Urine Occult Blood Urine Nitrate Urine Bilirubin Urine Urobilinogen Ur Leukocyte Esterase Urine RBC Urine WBC Ur Squamous Epith Cells Micro UA Comment Ur Microscopic Review Urine Culture Comments Salicylates Urine Opiates Screen Acetaminophen Less than 2.0 L Ur Barbiturates Screen Valproic Acid Less than 3 L Ur Amphetamines Screen U Benzodiazepines Scrn Urine Cocaine Screen U Cannabinoids Screen Serum Alcohol Less than 3 07/16/18 07/16/18 07/16/18 19:55 20:15 20:15 CBC w Diff WBC RBC Hgb Hct MCV MCH MCHC RDW Plt Count MPV Neut % (Auto) Lymph % (Auto) [place] % (Auto) Eos % (Auto) Baso % (Auto) Neut # (Auto) Lymph # (Auto) [place] # (Auto) Eos # (Auto) Baso # (Auto) WBC Differential Differential Comment PT INR APTT Sodium Potassium Chloride Carbon Dioxide Anion Gap BUN Creatinine Estimated GFR POC Glucose Random Glucose Lactic Acid Calcium Total Bilirubin AST ALT Alkaline Phosphatase Ammonia Less than 10 L Total Creatine Kinase CK-MB (CK-2) Troponin I Total Protein Albumin Lipase TSH Urine Color Yellow Urine Clarity Clear Urine pH 7.5 Ur Specific [place] 1.010 Urine Protein Negative Urine Glucose (UA) Negative Urine Ketones Negative Urine Occult Blood Negative Urine Nitrate Negative Urine Bilirubin Negative Urine Urobilinogen 0.2 Ur Leukocyte Esterase Negative Urine RBC 0-3 Urine WBC 0-5 Ur Squamous Epith Cells 0-5 Micro UA Comment Culture not ind Ur Microscopic Review Microscopic reviewed Urine Culture Comments Culture not ind Salicylates Urine Opiates Screen Neg Acetaminophen Ur Barbiturates Screen Neg Valproic Acid Ur Amphetamines Screen Neg U Benzodiazepines Scrn Neg Urine Cocaine Screen Neg U Cannabinoids Screen Neg Serum Alcohol 07/17/18 07/17/18 06:35 06:35 CBC w Diff Auto diff final WBC 7.9 RBC 3.79 L Hgb 12.3 L D Hct 34.6 L MCV 91.2 D MCH 32.5 MCHC 35.6 RDW 13.3 Plt Count 269 MPV 8.7 Neut % (Auto) 68.9 Lymph % (Auto) 17.9 [place] % (Auto) 11.4 H Eos % (Auto) 0.9 Baso % (Auto) 0.9 Neut # (Auto) 5.4 Lymph # (Auto) 1.4 [place] # (Auto) 0.9 Eos # (Auto) 0.1 Baso # (Auto) 0.1 WBC Differential . Differential Comment . PT INR APTT Sodium 144 Potassium 3.6 Chloride 110 H Carbon Dioxide 26.0 Anion Gap 8 BUN 16 Creatinine 0.77 Estimated GFR Greater than 89 POC Glucose Random Glucose 99 Lactic Acid Calcium 8.0 L Total Bilirubin AST ALT Alkaline Phosphatase Ammonia Total Creatine Kinase CK-MB (CK-2) Troponin I Total Protein Albumin Lipase TSH Urine Color Urine Clarity Urine pH Ur Specific [place] Urine Protein Urine Glucose (UA) Urine Ketones Urine Occult Blood Urine Nitrate Urine Bilirubin Urine Urobilinogen Ur Leukocyte Esterase Urine RBC Urine WBC Ur Squamous Epith Cells Micro UA Comment Ur Microscopic Review Urine Culture Comments Salicylates Urine Opiates Screen Acetaminophen Ur Barbiturates Screen Valproic Acid Ur Amphetamines Screen U Benzodiazepines Scrn Urine Cocaine Screen U Cannabinoids Screen Serum Alcohol - Imaging Impressions Chest X-Ray 07/16/18 18:54 CONCLUSION: No focal areas of consolidation. Infiltrate in the left lung base is similar to 2016 and may be chronic. Abdomen/Pelvis CT 07/16/18 18:56 CONCLUSION: 1. Nonobstructing 2 mm calcified stone mid pole left kidney. 2. Biliary gas in the left lobe is probably related to prior cholecystectomy. Caprini VTE Risk Assessment Caprini VTE Risk Assessment: Moderate/High Risk (score >= 2) Caprini Risk Assessment Model: Point Value = 1 Point Value = 2 Point Value = 3 Point Value = 5 Age 41-60 Minor surgery BMI > 25 kg/m2 Swollen legs Varicose veins or History of unexplained or recurrent spontaneous Oral contraceptives or hormone replacement Sepsis (< 1 month) Serious lung disease, including pneumonia (< 1 month) Abnormal pulmonary function Acute myocardial infarction Congestive heart failure (< 1 month) History of inflammatory bowel disease Medical patient at bed rest Age 61-74 Arthroscopic surgery Major open surgery (> 45 min) Laparoscopic surgery (> 45 min) Malignancy Confined to bed (> 72 hours) Immobilizing plaster cast Central venous access Age >= 75 History of VTE Family history of VTE Factor V Leiden Prothrombin [id number] Lupus anticoagulant Anticardiolipin antibodies Elevated serum homocysteine Heparin-induced thrombocytopenia Other congenital or acquired thrombophilia Stroke (< 1 month) Elective arthroplasty Hip, pelvis, or leg fracture Acute spinal cord injury (< 1 month) Prophylaxis Regimen: Total Risk Factor Score Risk Level Prophylaxis Regimen 0-1 Low Early ambulation 2 Moderate Order ONE of the following: *Sequential Compression Device (SCD) *Heparin 5000 units SQ BID 3-4 Higher Order ONE of the following medications: *Heparin 5000 units SQ TID *Enoxaparin/Lovenox 40 mg SQ daily (WT < 150 kg, CrCl > 30 mL/min) *Enoxaparin/Lovenox 30 mg SQ daily (WT < 150 kg, CrCl > 10-29 mL/min) *Enoxaparin/Lovenox 30 mg SQ BID (WT < 150 kg, CrCl > 30 mL/min) AND/OR *Sequential Compression Device (SCD) 5 or more Highest Order ONE of the following medications: *Heparin 5000 units SQ TID (Preferred with Epidurals) *Enoxaparin/Lovenox 40 mg SQ daily (WT < 150 kg, CrCl > 30 mL/min) *Enoxaparin/Lovenox 30 mg SQ daily (WT < 150 kg, CrCl > 10-29 mL/min) *Enoxaparin/Lovenox 30 mg SQ BID (WT < 150 kg, CrCl > 30 mL/min) AND *Sequential Compression Device (SCD) Assessment and Plan - Plan This is a 68-year-old male with a history of bipolar disorder, hypothyroidism and hypertension presenting with weakness and dizziness secondary dehydration. He also complains of chest and mid back pain and tenderness. He also has visual hallucinations. Weakness secondary to dehydration. No evidence of infection at this time. Patient received hydration overnight will discontinue because of tachypnea. He is not orthostatic. PT evaluation. Atypical chest pain. He also has mid back pain and tenderness over the sternum and entire spine. Chest x-ray without acute findings. Has infiltrate left lung base however patient denies respiratory symptoms. EKG with sinus rhythm and incomplete right bundle branch block no acute ST elevation. He is also tachypneic but saturating well on room air denies shortness of breath. He could just be anxious history of bipolar disorder. As mentioned, IV fluids will be discontinued will obtain one more set of cardiac enzymes, sed rate and d -dimer. Visual hallucination. Urinalysis and UDS negative. this could be related to his medications. Will obtain EEG and continue to monitor. Consider psychiatry consultation. Constipation. Start bowel regimen DVT prophylaxis with SCD and early ambulation Discharge Planning: Possible discharge with home care in 1-2 days
[2018-07-17 10:12] LABS: Magnesium 1.5 mg/dL (1.5-2.5)
[2018-07-17 10:23] LABS: Creatine Kinase 319 U/L (39-308)
[2018-07-17 10:34] LABS: Troponin I 0.03 ng/mL (0.02-0.05)
[2018-07-17 10:35] LABS: CKMB Percent 0.8 % (0.0-4.0); Creatine Kinase MB 2.4 ng/mL (0.5-3.6)
[2018-07-17] MEDS: Lisinopril 10 MG Tablet PO SCH (10:57)
[2018-07-17] MEDS: Divalproex 500 MG DR Tablet PO SCH (10:58)
--- NOTE | 2018-07-17 14:56 | CT ---
EXAM DATE: 07/17/2018 2:46 PM EDT AGE/SEX: 68 years / Male INDICATIONS: Short of breath. Retrosternal pain. Weakness. Dizziness. CLINICAL DATA: This is the patient's initial encounter. Patient reports that signs and symptoms have been present for 2 days and indicates a pain score of 2/10. MEDICAL/SURGICAL HISTORY: Hypertension. Cholecystectomy. RADIATION DOSE: 16.62 CTDI (mGy) COMPARISON: [facility], CHEST 1V SINGLE AP, 07/16/2018. . TECHNIQUE: Volumetric scanning was performed using a multi-row detector CT scanner during bolus infu hayley of 75 ml Omnipaque 350 (iohexol) nonionic water-soluble contrast as a cumulative dose for multi ple exams. The data was post processed with a variety of visualization algorithms including full volu me maximum intensity projection and sliding thin slab reformation. Using automated exposure control and adjustment of the mA and/or kV according to patient size, radiation dose was kept as low as reaso nably achievable to obtain optimal diagnostic quality images. DICOM format image data is available e lectronically for review and comparison. FINDINGS: Pulmonary Arteries: No filling defects are seen in the pulmonary arteries through the segmental vess els. The main pulmonary artery is normal in diameter. Lung: Mild patchy groundglass opacities in the lower lobes bilaterally. Minimal platelike airspace d isease in the inferior lingula and right middle lobe. Pleura: No effusion, significant pleural thickening or pneumothorax. Mediastinum: Coronary artery calcifications. Heart is otherwise unremarkable. Note is made of aberra nt right subclavian artery with direct origin of the right carotid artery from aorta. Slightly promin ent 13 mm subcarinal lymph node. Several additional subcentimeter mediastinal nodes which do not meet CT size criteria. Osseous Structures: No abnormal focal lytic or blastic bony lesions. Other: Visulaized upper abdomen is unremarkable. CONCLUSION: 1. No CT evidence for pulmonary artery embolism as questioned. 2. Coronary artery calcifications. 3. Bilateral lower lobe groundglass opacities consistent with atelectasis. Platelike atelectasis/sca rring in the lingula and right middle lobe. 4. Very nonspecific slightly prominent 13 mm subcarinal lymph node. Electronically signed by: Hector Dawn MD 07/17/2018 2:55 PM EDT
--- NOTE | 2018-07-17 14:57 | CT ---
EXAM DATE: 07/17/2018 2:49 PM EDT AGE/SEX: 68 years / Male INDICATIONS: Abdominal distention. CLINICAL DATA: This is the patient's initial encounter. Patient reports that signs and symptoms have been present for 1 day and indicates a pain score of 2/10. MEDICAL/SURGICAL HISTORY: Hypertension. Cholecystectomy. ORAL CONTRAST: No oral contrast ingested. RADIATION DOSE: 15.55 CTDI (mGy) COMPARISON: [facility], CT ABDOMEN & PELVIS W/O CONTRAST, 07/16/2018. . TECHNIQUE: Multiple contiguous axial images were obtained through the abdomen and pelvis following b olus infusion of 75 ml Omnipaque 350 (iohexol) nonionic water-soluble contrast as a cumulative dose for multiple exams. No oral contrast ingested. Using automated exposure control and adjustment of t he mA and/or kV according to patient size, radiation dose was kept as low as reasonably achievable to obtain optimal diagnostic quality images. DICOM format image data is available electronically for r eview and comparison. FINDINGS: Abdomen CT: The liver, spleen, pancreas, kidneys, adrenals are unremarkable. The tiny 2 mm left renal stone ident ified previously is not visualized possibly due to technique. There is pneumobilia within the left he patic lobe. There is evidence for prior cholecystectomy. There is no evidence for any appreciable pat hological adenopathy, free fluid, or bowel obstruction. Pelvic CT: There is no evidence for mass, abscess formation, or any significant adenopathy within the pelvis. P rostatic seed implants are in place. There is mild superior endplate depression of L1 chronic in natu re. CONCLUSION: Postcholecystectomy changes and left hepatic pneumobilia. Electronically signed by: Kashif Wray MD 07/17/2018 2:56 PM EDT
[2018-07-18] MEDS: Levothyroxine 50 MCG Tablet PO SCH (06:20)
[2018-07-18 08:39] LABS: Potassium 3.3 meq/L (3.5-5.1)
[2018-07-18 08:41] LABS: Calcium 8.5 mg/dL (8.5-10.1); Carbon Dioxide 28.8 meq/L (21.0-32.0)
--- NOTE | 2018-07-18 09:13 | P.PN ---
Subjective Interval history: F/u weakness and hallucination. Patient has no new complaints but continues to have visual hallucinations. Physical Exam Vital signs: Vital Signs 07/17/18 12:00 07/17/18 16:00 07/17/18 17:05 Temperature 98.4 F 99.0 F Pulse Rate 98 H 96 H Respiratory Rate 32 H 35 H Blood Pressure 118/73 148/91 H Pulse Oximetry 92 L 94 L 94 L 07/17/18 19:48 07/17/18 22:47 07/18/18 00:00 Temperature 99.1 F 99.1 F Pulse Rate 100 H 122 H Respiratory Rate 22 30 H 30 H Blood Pressure 114/72 139/85 Pulse Oximetry 93 L 90 L 07/18/18 04:00 Temperature 99.9 F H Pulse Rate 114 H Respiratory Rate 21 Blood Pressure 155/89 H Pulse Oximetry 91 L Intake & Output 07/17/18 07/18/18 07/18/18 18:59 06:59 18:59 Intake Total 1420 / 1420 120 / 120 Output Total 950 / 950 Balance 470 / 470 120 / 120 Weight 86.9 kg Intake: IV 700 / 700 NS Inj 1,000 ML @ 100 mls/hr IV 700 / 700 .CONT .Q10H [facility] Rx#:[id number] Oral 720 / 720 120 / 120 Output: Urine 950 / 950 Other: # Incontinent Voids 5 Narrative: GENERAL: Well-developed, well-nourished in no distress SKIN: Warm and dry. CARDIOVASCULAR: Regular rate and rhythm. RESPIRATORY: No accessory muscle use. Clear to auscultation. Breath sounds equal bilaterally. GASTROINTESTINAL: Abdomen soft, non-tender, nondistended. MUSCULOSKELETAL: Extremities without clubbing, cyanosis, or edema. No obvious deformities. Tender entire spine NEUROLOGICAL: Awake and alert. No obvious cranial nerve deficits. Motor grossly within normal limits. Five out of 5 muscle strength in the arms and legs. Normal speech. Admits to visual PSYCHIATRIC: Appropriate mood and affect; insight and judgment normal. Results - Labs CBC & Chem 7: 07/17/18 06:35 07/18/18 07:30 Laboratory Results - last 24 hr 07/17/18 07/17/18 07/17/18 06:35 06:35 06:35 ESR 16 D-Dimer Quant (PE/DVT) 2.39 H Sodium Potassium Chloride Carbon Dioxide Anion Gap BUN Creatinine Estimated GFR Random Glucose Calcium Magnesium 1.5 Total Creatine Kinase 319 H CK-MB (CK-2) 2.4 CK-MB (CK-2) % 0.8 Troponin I 0.03 Valproic Acid Less than 3 L 07/18/18 07:30 ESR D-Dimer Quant (PE/DVT) Sodium 143 Potassium 3.3 L Chloride 106 Carbon Dioxide 28.8 Anion Gap 8 BUN 16 Creatinine 0.91 Estimated GFR 83 L Random Glucose 93 Calcium 8.5 Magnesium Total Creatine Kinase CK-MB (CK-2) CK-MB (CK-2) % Troponin I Valproic Acid Microbiology 07/16/18 19:00 Blood - Peripheral Aerobic Blood Culture - Preliminary No growth in 1 day 07/16/18 19:00 Blood - Peripheral Anaerobic Blood Culture - Preliminary No growth in 1 day 07/16/18 19:30 Blood - Peripheral Aerobic Blood Culture - Preliminary No growth in 1 day 07/16/18 19:30 Blood - Peripheral Anaerobic Blood Culture - Preliminary No growth in 1 day - Imaging Impressions ITS Impressions Chest X-Ray 07/16/18 18:54 CONCLUSION: No focal areas of consolidation. Infiltrate in the left lung base is similar to 2016 and may be chronic. Abdomen/Pelvis CT 07/17/18 00:00 CONCLUSION: Postcholecystectomy changes and left hepatic pneumobilia. Chest CTA 07/17/18 00:00 CONCLUSION: 1. No CT evidence for pulmonary artery embolism as questioned. 2. Coronary artery calcifications. 3. Bilateral lower lobe groundglass opacities consistent with atelectasis. Platelike atelectasis/scarring in the lingula and right middle lobe. 4. Very nonspecific slightly prominent 13 mm subcarinal lymph node. - Procedures none Assessment and Plan - Plan This is a 68-year-old male with a history of bipolar disorder, hypothyroidism and hypertension presenting with weakness and dizziness secondary dehydration. He also complains of chest and mid back pain and tenderness. He also has visual hallucinations. Weakness secondary to dehydration. No evidence of infection at this time. He is not orthostatic. Improved status post hydration. Physical therapy recommends outpatient follow-up Atypical chest pain. He also has mid back pain and tenderness over the sternum and entire spine. Chest x-ray without acute findings. Has infiltrate left lung base however patient denies respiratory symptoms. CTA shows atelectasis and no PE. EKG with sinus rhythm and incomplete right bundle branch block no acute ST elevation. He is also tachypneic but saturating well on room air denies shortness of breath. He could just be anxious history of bipolar disorder. Cardiac enzymes and sed rate unremarkable Visual hallucination. Urinalysis and UDS negative. this could be related to his medications. F/u EEG and continue to monitor. Obtain psychiatry consultation. Constipation. Start bowel regimen DVT prophylaxis with SCD and early ambulation Discharge Planning: Possible discharge when cleared by psychiatry
[2018-07-18] MEDS: Heparin - SQ 10,000 UNITS/ML Vial SQ SCH ×2 (09:46→20:18)
[2018-07-18] MEDS: Senna/Docusate Sodium 8.6/50 MG Tablet PO SCH ×2 (09:47→20:18)
[2018-07-18] MEDS: buPROPion 150 MG 12 HR Tablet PO SCH (09:47)
[2018-07-18] MEDS: Lisinopril 10 MG Tablet PO SCH (09:47)
[2018-07-18] MEDS: Divalproex 500 MG DR Tablet PO SCH (09:47)
--- NOTE | 2018-07-18 16:33 | P.CONPSY ---
Provisional Diagnosis Admission Date: July 16, 2018 23:44 Milton I.: Unspecified psychosis, bipolar disorder, r/o Wellbutrin induced perceptual disturbance History of Present Illness Service: Medicine Primary Care Provider: Magali Douglass MD Family Provider: Magali Douglass MD Chief Complaint: Generalized weakness History of Present Illness: The patient is a 68 years old man, domiciled alone in [place], , supported by Social Security, with a psychiatric history of bipolar disorder, but no previous psychiatric hospitalizations, no previous suicide attempts, outpatient care in [facility], he is in Wellbutrin 150 mg, Seroquel 400 mg at bedtime and Depakote 500 mg twice daily, with a medical hypothyroidism and hypertension. Family history of heart disease. He presents to the emergency department because of dehydration. States he has been feeling weak for about a week worsening over the last 2 days associated with dizziness especially when he is standing. No falls. Denies anorexia, nausea, vomiting, abdominal pain, UTI and diarrhea. He was not orthostatic in the emergency department and has been hydrated overnight. This morning he complains of nausea. He also reports of chronic intermittent sharp severe retrosternal pain as well as mid back pain lasting from 5-30 minutes associated with dizziness. He also reports of heavy breathing but denies radiation of pain, palpitations and diaphoresis. No precipitating or alleviating factors. It is not related to meals. Denies history of CAD with negative stress test in 2006. No leg pain or swelling. On exam he is also tender over his sternum and entire spine. He also reports of visual hallucination seeing people denies being threatened. States he is not taking any new medications. UDS is negative. Consulted to psychiatry for auditory hallucinations. On my psychiatric evaluation today the patient is calm , cooperative, very pleasant. The patient reports that he feels much better, he is in a better mood today, denies symptoms of depression, he is future oriented, denies suicidal and homicidal ideation. He does report episodic auditory hallucinations, he sees people coming inside his room, people tends to be quite colorful, and usually mute. These episodes of perceptual disturbances happen once or twice a day. They tend to be no anxiety or distress provoking. He reports that he has been having this episodes of perceptual disturbances for about 6 months now, but they have been increasing a little more than the last months. Patient does not seem to be quite distressed or anxious about these symptoms. Is fully oriented 3. Logical, coherent and relevant. Denies the use of illegal drugs and alcohol Review of Systems Constitutional: Denies anorexia, Denies body ache(s), Denies chills, Denies daytime sleepiness, Denies excessive sweating, Denies fatigue, Denies fever(s), Denies headache(s), Denies increased appetite, Denies lack of energy, Denies malaise, Denies night sweats, Denies weakness, Denies weight gain, Denies weight loss, Denies other Eyes: Denies blind spots, Denies blurry vision, Denies bulging eyes, Denies change in vision, Denies double vision, Denies discharge, Denies dry eyes, Denies floaters, Denies irritation, Denies itchy eyes, Denies loss of vision, Denies pain, Denies requires corrective lenses, Denies sensitivity to light, Denies other Ears, Nose, Mouth, and Throat: Denies abnormal hearing, Denies bleeding gums, Denies bad breath, Denies change in voice, Denies dental pain, Denies difficulty swallowing, Denies dizziness, Denies dry mouth, Denies ear discharge , Denies ear pain, Denies facial pain, Denies headache(s), Denies hearing loss, Denies hoarseness, Denies lip swelling, Denies nosebleed, Denies mouth lesions, Denies mouth pain, Denies nasal congestion, Denies nasal discharge, Denies nasal obstruction, Denies nasal trauma, Denies neck lump, Denies neck pain, Denies nose pain, Denies pain with swallowing, Denies poor balance, Denies post nasal drip, Denies ringing in the ears, Denies sinus pain, Denies sinus pressure , Denies sore throat, Denies throat swelling, Denies tongue swelling, Denies other Cardiovascular: Denies chest pain, Denies chest pain at rest, Denies chest pain with activity, Denies excessive sweating, Denies fainting, Denies fast heart rate, Denies foot swelling, Denies generalized swelling, Denies irregular heart rhythm, Denies leg pain with activity, Denies leg sores, Denies leg swelling, Denies lightheadedness, Denies radiating jaw, neck or arm pain, Denies rapid, pounding, or irregular heartbeat, Denies shortness of breath, Denies shortness of breath with activity, Denies shortness of breath when lying down, Denies shortness of breath causing sudden awakening, Denies slow heart rate, Denies other Respiratory: Denies change in phlegm color, Denies chest congestion, Denies cough, Denies coughing up blood, Denies excessive phlegm production, Denies pain on inspiration, Denies pain with cough, Denies shortness of breath, Denies shortness of breath with activity, Denies snoring, Denies stridor, Denies wheezing, Denies other Gastrointestinal: Denies abdominal pain, Denies belching, Denies black, tarry stools, Denies bloating, Denies bright, red blood in stools, Denies change in bowel habits, Denies constant urge to pass stool, Denies change in stools, Denies coffee ground vomit, Denies constipation, Denies cramping, Denies difficulty swallowing, Denies excessive passing of gas, Denies feeling full early, Denies heartburn, Denies incontinent of stools, Denies loose stools, Denies nausea, Denies pain with swallowing, Denies vomiting, Denies vomiting blood, Denies other Genitourinary: Denies blood in semen, Denies blood in urine, Denies decreased urination, Denies difficulty urinating, Denies difficulty with ejaculations, Denies erectile dysfunction, Denies genital lesions, Denies genital pain, Denies painful urination, Denies side pain, Denies frequent nighttime urination , Denies painful ejaculations, Denies penile discharge, Denies scrotal swelling , Denies testicle lump, Denies testicle pain, Denies urinary frequency, Denies urinary hesitancy, Denies urinary incontinence, Denies urinary urgency, Denies other Musculoskeletal: Denies abnormal walking, Denies back pain, Denies body aches, Denies decreased muscle mass, Denies deformity, Denies joint pain, Denies joint swelling, Denies limited joint movement, Denies loss of height, Denies muscle cramps, Denies muscle weakness, Denies neck pain, Denies numbness, Denies radiating pain into limb, Denies stiffness, Denies tingling, Denies other Skin/Breast: Denies acne, Denies bleeding lesions, Denies boil, Denies breast swelling, Denies breast skin changes, Denies breast pain, Denies breast lump, Denies change in breast shape, Denies change in hair, Denies change in skin color, Denies changing lesions, Denies dry skin, Denies excessive hair growth, Denies hair loss, Denies itching, Denies lesions, Denies nail changes, Denies new lesions, Denies nipple discharge, Denies non-healing lesions, Denies redness , Denies sensitivity to light, Denies rash, Denies skin pain, Denies skin ulcer , Denies sores, Denies stretch lopes, Denies unusual bruising, Denies wounds, Denies yellowing of the skin, Denies other Neurologic: Denies abnormal hearing, Denies abnormal movements, Denies abnormal speech, Denies abnormal walking, Denies behavioral changes, Denies burning sensations, Denies confusion, Denies dizziness, Denies fainting, Denies frequent falls, Denies headache(s), Denies lack of coordination, Denies localized weakness, Denies loss of vision, Denies memory loss, Denies numbness, Denies other visual disturbances, Denies radiating pain, Denies restless legs, Denies convulsions, Denies seizure-like activity, Denies sensory deficit, Denies tingling, Denies tingling/numbness/burning sensations, Denies tremor(s), Denies unsteadiness, Denies weakness, Denies other Psychiatric: Reports seeing things others do not see, Reports sensing things others do not sense PMF - History History Provided By: Patient, Family Member (sister) - Medical History Medical History: Medical History (Last Reviewed 07/17/18 @ 13:54 by Chavez Hernandez) Hypertension Mood disorder Thyroid disease - Surgical History Surgical History: Surgical History (Last Reviewed 07/17/18 @ 13:54 by Chavez Hernandez) History of cholecystectomy Hx of tonsillectomy - Tobacco History Second Hand Smoke Exposure: No Tobacco Use In Past 30 Days: No Smoking Status: Former smoker Tobacco Type: Cigarettes - Alcohol History How Often Do You Have a Drink Containing Alcohol: 2 to 4 times a month - Substance Use History Substance History: No History of Abuse - Substance Use Type LSD, Mushrooms Last Used: 1996 Marijuana Status: Sustained Remission Route Used: Inhalation Last Used: 1996 - Immunization History Tetanus Immunization: <5 Years Hx Influenza Vaccine This Season: Yes Medications and Allergies Active Medications: Active Medications Acetaminophen (Tylenol) 650 mg PO Q4H PRN PRN Reason: Temp > 100.4 Hydrocodone Bitart/Acetaminophen ([place] 5/325) 1 tab PO Q6H PRN PRN Reason: pain (scale score 7-10) Last Admin: 07/17/18 22:17 Dose: 1 tab Al Hydroxide/Mg Hydroxide (Milk Of Magnemmy Liq) 30 ml PO Q12H PRN PRN Reason: Mild Constipation Bisacodyl (Dulcolax Supp) 10 mg RECTAL DAILY PRN PRN Reason: SEVERE CONSITIPATION Last Admin: 07/17/18 09:43 Dose: 10 mg Bupropion HCl (Wellbutrin Sr) 150 mg PO DAILY [facility] Last Admin: 07/18/18 09:47 Dose: 150 mg Clonidine HCl (Catapres) 0.1 mg PO Q6H PRN PRN Reason: SEE LABEL COMMENTS Divalproex Sodium (Depakote Dr) 500 mg PO DAILY [facility] Last Admin: 07/18/18 09:47 Dose: 500 mg Enalaprilat (Vasotec Inj) 1.25 mg IV.PUSH Q6H PRN PRN Reason: SEE LABEL COMMENTS Heparin Sodium (Porcine) (Heparin Inj) 5,000 units SQ Q12HR [facility] Last Admin: 07/18/18 09:46 Dose: 5,000 units Magnesium Sulfate Inj 4 gm/ (Sodium Chloride) 100 mls @ 50 mls/hr IV.SIG UNSCH PRN PRN Reason: For Magnesium 0.9 - 1.1 mg/dL Magnesium Sulfate Inj 2 gm/ (Sodium Chloride) 100 mls @ 50 mls/hr IV.SIG UNSCH PRN PRN Reason: For Magnesium 1.2 - 1.6 mg/dL Potassium Chloride (Kcl 40 Meq Premix Inj) 40 meq in 100 mls @ 25 mls/hr IV.SIG Q2H PRN PRN Reason: For Potassium 2.8 - 3.2 mEq/L Potassium Chloride (Kcl 20 Meq Premix Inj) 20 meq in 100 mls @ 50 mls/hr IV.SIG Q2H PRN PRN Reason: For Potassium 3.3 - 3.5 mEq/L Potassium Chloride (Kcl 40 Meq Premix Inj) 40 meq in 100 mls @ 25 mls/hr IV.SIG UNSCH PRN PRN Reason: For Potassium 3.3 - 3.5 mEq/L Potassium Chloride (Kcl 20 Meq Premix Inj) 20 meq in 100 mls @ 50 mls/hr IV.SIG Q2H PRN PRN Reason: For Potassium 2.8 - 3.2 mEq/L Potassium Phosphate 30 mmol/ (Sodium Chloride) 260 mls @ 42 mls/hr IV.SIG UNSCH PRN PRN Reason: SEE LABEL COMMENTS Sodium Phosphate 30 mmol/ (Sodium Chloride) 260 mls @ 42 mls/hr IV.SIG UNSCH PRN PRN Reason: For Phosphorus < 2.5 mg/dL Lactulose (Lactulose Liq) 30 ml PO DAILY PRN PRN Reason: SEVERE CONSITIPATION Levothyroxine Sodium (Synthroid) 50 mcg PO DAILY@0600 [facility] Last Admin: 07/18/18 06:20 Dose: 50 mcg Lisinopril (Prinivil) 10 mg PO DAILY [facility] Last Admin: 07/18/18 09:47 Dose: 10 mg Magnesium Oxide (Mag-Ox) 800 mg PO UNSCH PRN PRN Reason: For Magnesium 1.2 - 1.6 mg/dL Ondansetron HCl (Zofran Inj) 4 mg IV.PUSH Q6H PRN PRN Reason: NAUSEA OR VOMITING Last Admin: 07/17/18 09:03 Dose: 4 mg Potassium Bicarb/Potassium Chloride (K-Lyte Cl Eff) 50 meq PO UNSCH PRN PRN Reason: For Potassium 3.3 - 3.5 mEq/L Potassium Phosphate (K-Phos Original) 2,000 mg PO Q4H PRN PRN Reason: Phosphorus Less Than 2.5 mg/dL Potassium Phosphate (K-Phos Original) 2,000 mg PO UNSCH PRN PRN Reason: SEE LABEL COMMENTS Quetiapine Fumarate (Seroquel) 400 mg PO HS [facility] Last Admin: 07/17/18 20:23 Dose: 400 mg Senna/Docusate Sodium (Betsy-Colace) 1 tab PO BID [facility] Last Admin: 07/18/18 09:47 Dose: 1 tab Sennosides (Senokot) 17.2 mg PO Q12H PRN PRN Reason: Moderate Constipation Last Admin: 07/17/18 09:43 Dose: 17.2 mg Allergies Allergy/AdvReac Type Severity Reaction Status Date / Time No Known Allergies Allergy Verified 07/16/18 18:33 Home Medications Medication Instructions Recorded Confirmed Type divalproex [Depakote] 500 mg PO QAM 06/07/18 07/18/18 History levothyroxine [Synthroid] 50 mcg PO DAILY 06/07/18 07/16/18 History quetiapine [Seroquel] 400 mg PO HS 06/07/18 07/16/18 History lisinopril 10 mg PO DAILY 07/16/18 07/16/18 History divalproex 1,000 mg PO QPM 07/18/18 07/18/18 History Exam Vital signs: Vital Signs 07/17/18 17:05 07/17/18 19:48 07/17/18 22:47 Temperature 99.1 F Pulse Rate 100 H Respiratory Rate 22 30 H Blood Pressure 114/72 Pulse Oximetry 94 L 93 L 07/18/18 00:00 07/18/18 04:00 07/18/18 08:00 Temperature 99.1 F 99.9 F H 99.1 F Pulse Rate 122 H 114 H 106 H Respiratory Rate 30 H 21 30 H Blood Pressure 139/85 155/89 H 155/95 H Pulse Oximetry 90 L 91 L 94 L 07/18/18 12:00 Temperature 98.6 F Pulse Rate 106 H Respiratory Rate 27 H Blood Pressure 114/88 Pulse Oximetry 95 Intake & Output 07/17/18 07/18/18 07/18/18 18:59 06:59 18:59 Intake Total 1420 / 1420 120 / 120 Output Total 950 / 950 Balance 470 / 470 120 / 120 Weight 86.9 kg Intake: IV 700 / 700 NS Inj 1,000 ML @ 100 mls/hr IV 700 / 700 .CONT .Q10H [facility] Rx#:[id number] Oral 720 / 720 120 / 120 Output: Urine 950 / 950 Other: # Incontinent Voids 5 Narrative: No tremors, no EPS, no psychomotor agitation retardation, no stiffness - Constitutional no acute distress - Routine HEENT Exam Head: Present: normocephalic Eye: Present: EOMI, PERRL Mental Status Examination Appearance: Appropriate Consciousness: Alert Orientation: x4 Motor Activity: Normal gait Speech: Unremarkable Language: Adequate Fund of Knowledge: Adequate Attention and Concentration: Adequate Memory: Unremarkable Mood: Appropriate Affect: Appropriate Thought Process & Associations: Intact Thought Content: Appropriate Hallucination Type: Visual Delusion Type: None Suicidal Ideation: No Suicidal Plan: No Suicidal Intention: No Homicidal Ideation: No Homicidal Plan: No Homicidal Intention: No Insight: Adequate Judgment: Adequate Assessment and Plan - Assessment (1) Unspecified psychosis Code(s): F29 - Unspecified psychosis not due to a substance or known physiological condition Status: Acute - Plan Plan: Estimated LOS: [] days On psychiatric evaluation today find a patient that is calm, cooperative and pleasant. The patient reports to have a better mood today and feels less distressed about recent episodes of visual hallucinations. He reports that for the last 3 months he has been having episodic visual hallucinations consisting and seeing people walking around him, sometimes trying to communicate with him, but usually mute. He describes this visual hallucinations has very vivid, 1 or twice per day, sometimes he can go 2 or 3 days without having anyone, but there are no anxiety or distress provoking. He usually keeps the insight about the real nature of this perceptual disturbances. He denies auditory hallucinations. Patient's thought process seems to be logical, coherent and relevant. He is also oriented 3, with good recent and immediate recall, conserved language, abstraction and executive function, he does not have any gross cognitive impairment at the moment of this evaluation. He does have a psychiatric history of bipolar disorder, he has been treated as an outpatient in [facility] with Seroquel 400 mg at bedtime, Wellbutrin 150 mg daily and also Depakote 500 mg twice daily. He denies previous suicidal attempts. I will order a Depakote level to confirm compliance. Isolated visual hallucinations are usually related with medical conditions and substances and they are rarely secondary to major psychotic disorders. However, Wellbutrin could be related with episodes of visual hallucinations. In this case and going to decrease the Wellbutrin to 75 mg daily. Patient most have EEG to rule out epileptogenic activity of the visual cortex. I have recommended to the patient a voluntary admission in psychiatry, but he has declined stating that he will follow-up with his outpatient psychiatrist in [facility], which is appropriate also. Brief supportive psychotherapy, motivational psychoeducation provided. Consult appreciated Justification for Continued Inpatient Stay: No admission indicated.
--- NOTE | 2018-07-18 17:35 | ECG ---
Date Performed: 07/16/2018 Time Performed: 19:03:58 PTAGE: 68 years EKG: SINUS TACHYCARDIA WITH OCCASIONAL SUPRAVENTRICULAR PREMATURE COMPLEXES BORDERLINE LEFT AXIS DEVIATION INCOMPLETE RIGHT BUNDLE BRANCH BLOCK MODERATE ST DEPRESSION ABNORMAL ECG PREVIOUS TRACING : 10/06/2016 11.01 DOCTOR: Nichol Kumar Interpretating Date/Time 07/18/2018 17:31:21
[2018-07-18] MEDS ORDERED: Divalproex 500 MG DR Tablet PO SCH ×2 (19:00)
--- NOTE | 2018-07-18 19:32 | MG ---
cc: Tulio Martin MD ELECTROENCEPHALOGRAM RECORD NUMBER: [id number] 7-9 Hz alpha activity in the posterior channels 20-50 microvolts, low-amplitude beta in the frontal channels. Good anterior to posterior gradient, rare tiny temporal sharp transients, body twitching, epoch 121, sharply contoured theta activity. Frontal high frequency artifact. Overall good EEG variability and reactivity. Very tiny phase reversal temporal region versus delta suggestive of episodes of drowsiness. INTERPRETATION: Minimal nonspecific changes, which may be related to psychotropic medications. Otherwise stable, awake, drowsy EEG. Clinical correlation. Tulio Martin MD MG/kristi/eleno , 07:06 PM , 07:10 PM
[2018-07-19] MEDS: Levothyroxine 50 MCG Tablet PO SCH (06:12)
[2018-07-19] MEDS: Heparin - SQ 10,000 UNITS/ML Vial SQ SCH (08:21)
[2018-07-19] MEDS: Divalproex 500 MG DR Tablet PO SCH (08:21)
[2018-07-19] MEDS: Lisinopril 10 MG Tablet PO SCH (08:22)
[2018-07-19] MEDS: Senna/Docusate Sodium 8.6/50 MG Tablet PO SCH (08:24)
[2018-07-19] MEDS ORDERED: buPROPion 75 MG Tablet PO SCH (09:00)
--- NOTE | 2018-07-19 09:40 | P.DS ---
Date of admission: 07/16/18 23:44 Primary care physician: Magali Douglass MD Brief History from admission: This is a 68-year-old male with a history of bipolar disorder, hypothyroidism and hypertension. Family history of heart disease. He presents to the emergency department because of dehydration. States he has been feeling weak for about a week worsening over the last 2 days associated with dizziness especially when he is standing. No falls. Denies anorexia, nausea, vomiting, abdominal pain, UTI and diarrhea. He was not orthostatic in the emergency department and has been hydrated overnight. This morning he complains of nausea. He also reports of chronic intermittent sharp severe retrosternal pain as well as mid back pain lasting from 5-30 minutes associated with dizziness. He also reports of heavy breathing but denies radiation of pain, palpitations and diaphoresis. No precipitating or alleviating factors. It is not related to meals. Denies history of CAD with negative stress test in 2006. No leg pain or swelling. On exam he is also tender over his sternum and entire spine. He also reports of visual hallucination seeing people denies being threatened. States he is not taking any new medications. UDS is negative. All other systems reviewed negative DS: Summary Hospital Course: Mr. Friedman is a 68-year-old male with a history of bipolar disorder, hypothyroidism and hypertension presenting with weakness and dizziness secondary dehydration. He also complains of chest and mid back pain and tenderness. He also has visual hallucinations. Upon admission patient was found to be weak secondary to dehydration. He received IV hydration. He was not orthostatic. Physical therapy recommended outpatient follow-up. He also reported atypical chest pain. CTA showed atelectasis but no PE. EKG showed incomplete right bundle branch block without any ST changes. Patient continued to do well. He had visual hallucinations. Psychiatry was consulted who recommended voluntary admission to inpatient psych. However patient declined inpatient psych admission. He was encouraged to follow-up in the outpatient setting. EEG was done and showed no acute seizure activities or any other acute findings. Psychiatry decreased his bupropion to 75 mg. On the day of discharge 07/19/2018, patient is very coherent and denies any hallucinations. He is alert, oriented 3, NAD. He reports that 1 of his sisters is a nurse and lives 10 minutes from his house. Will discharge patient with home health. - Time Spent with Patient Total time spent providing and/or coordinating discharge services: Less than 30 minutes - Quality: VTE Deep Vein Thrombosis/Pulmonary Embolism Present on Admission: No Exam Vital signs: Vital Signs 07/18/18 12:00 07/18/18 16:00 07/18/18 19:00 Temperature 98.6 F 98.5 F Pulse Rate 106 H 106 H Respiratory Rate 27 H 22 Blood Pressure 114/88 151/108 H Pulse Oximetry 95 94 L 07/18/18 20:00 07/18/18 20:02 07/18/18 21:07 Temperature 98.3 F Pulse Rate 118 H 116 H 116 H Respiratory Rate 28 H 24 Blood Pressure 187/110 H 147/84 H Pulse Oximetry 94 L 07/18/18 22:11 07/19/18 00:00 07/19/18 02:52 Temperature 98.6 F 98.1 F Pulse Rate 118 H 105 H Respiratory Rate 26 H 20 Blood Pressure 119/76 170/92 H Pulse Oximetry 96 94 L 94 L 07/19/18 08:00 07/19/18 08:20 Temperature 98.3 F Pulse Rate 98 H Respiratory Rate 18 Blood Pressure 183/89 H Pulse Oximetry 96 97 Intake & Output 07/18/18 07/19/18 07/19/18 18:59 06:59 18:59 Intake Total 960 / 960 0 / 0 Output Total 550 / 550 Balance 410 / 410 0 / 0 Weight 86.8 kg Intake: Oral 960 / 960 0 / 0 Output: Urine 550 / 550 Other: # Voids 2 Date of Last Bowel Movement 07/18/18 Results Procedures completed during hospitalization: none Labs on day of discharge: Preliminary micro results at discharge 07/16/18 19:00 Aerobic Blood Culture - Preliminary Blood - Peripheral No growth in 2 days Anaerobic Blood Culture - Preliminary No growth in 2 days 07/16/18 19:30 Aerobic Blood Culture - Preliminary Blood - Peripheral No growth in 2 days Anaerobic Blood Culture - Preliminary No growth in 2 days - Impressions ITS Impressions Chest X-Ray 07/16/18 18:54 CONCLUSION: No focal areas of consolidation. Infiltrate in the left lung base is similar to 2016 and may be chronic. Abdomen/Pelvis CT 07/17/18 00:00 CONCLUSION: Postcholecystectomy changes and left hepatic pneumobilia. Chest CTA 07/17/18 00:00 CONCLUSION: 1. No CT evidence for pulmonary artery embolism as questioned. 2. Coronary artery calcifications. 3. Bilateral lower lobe groundglass opacities consistent with atelectasis. Platelike atelectasis/scarring in the lingula and right middle lobe. 4. Very nonspecific slightly prominent 13 mm subcarinal lymph node. Discharge Plan - Discharge Disposition Patient Disposition: W/Home Health Service - Discharge Condition Condition: Fair - Discharge Order Discharge Orders: Discharge Order (Routine); Ordered 07/18/18 Ordered By: Sonido Martinez - Discharge Details Anticipated Discharge Date: 07/19/18 Discharge Comment: Okay to discharge patient home. - Physicians Team Primary Care Provider: Magali Douglass Attending Provider: Suzanna Rouse Other Providers: Brittany Soto ; Toribio Lorenzo MD
--- NOTE | 2018-07-19 09:42 | P.DCO ---
- Physical Therapy Order: Evaluate and treat, Improve ambulation, Strength and gait training - Home Health Nursing Order: Medical education, Signs/symptoms of disease process, Nursing assessment with vital signs - Certification I have seen patient Andrew Friedman III on 07/19/18. My clinical findings support the need for the requested home health care services because: Deconditioned with increased weakness, Medication compliance is questionable, Limited ability to care for self I certify that my clinical findings support that this patient is homebound because: Unsafe to leave home unassisted, Need for psychosocial assistance, Unable to use public transportation
== END 2018-07-19 14:08 | disposition home health service (06) ==
LOC: PHEDA 18:24 → PHED 18:24 → PHEDA 07-17 01:39 → PHICU 07-17 01:39 → PH3 07-19 02:35
PROVIDERS: ADMIT Hospitalist; ATTEND Hospitalist